=== PATIENT | male | born 1955 | race Caucasian/White ===

== ENCOUNTER 2024-02-02 08:21 | Outpatient (OUT) | payer MEDICARE, SELFPAY ==
--- NOTE | 2024-02-02 08:05 | NM_ITS ---
Patient Name: CAMILA LINDSAY MR#: [id number] : 1955 Exam Date: 02/02/2024 Ordering Doctor: DR Cesar Davis D.O. RADIOLOGY REPORT PROCEDURE: NM ADITYA PERF SPECT REST STR COMPARISON: None. INDICATIONS: ATRIAL FIBRILLATION, HYPERTENSION TECHNIQUE: Exam Description: Stress/Rest two day protocol gated SPECT Rest Imagin.7 mCi Tc-99m Cardiolite IV on 02/02/2024 Stress Imaging 25.7 mCi Tc-99m Cardiolite IV on 02/10/2024 Exercise Protocol: 0.4 mg Lexiscan given IV Heart Rate (bpm): Rest: 90 Max: 123 PMHR: 80 Blood Pressure: Rest: 136/68 Max: 142/76 Symptoms: Rest and peak stress ECG findings were normal and the exercise portion of the study was normal per attending physician Dr. Kvng Davis . For more details please see separate cardiac stress test report. FINDINGS: QUALITY OF STUDY: Good. PERFUSION DEFECT: LOCATION: Basal inferior. Mid-inferior. Apical inferior. [place]. SIZE: SEVERITY: Moderate. TYPE: Persistent. WALL MOTION: Severe hypokinesis: Global LV SIZE: Enlarged; EDV 204 mL. TID / TCD: None; 1.0 LVEF: Abnormal. Calculated EF 39%. SUMMARY: Myocardial perfusion imaging study has ABNORMAL findings. CONCLUSION: 1. No acute or reversible ischemia. 2. Moderate decreased perfusion of the inferior wall and apex during rest and stress imaging. 3. Left ventriculomegaly, 204 mL. 4. Global hypokinesis of left ventricle and low ejection fraction of 39%. Dictated by: Gerald Tabares M.D. on 02/11/2024 at 14:01 Approved by: Gerald Tabares M.D. on 02/11/2024 at 14:12
== END 2024-02-02 08:22 | disposition home or self-care (01) ==
LOC: NM 08:21
PROVIDERS: PCP Internal Medicine; Visit Provider Internal Medicine
DX: R07.9 Chest pain, unspecified (principal); I48.19 Other persistent atrial fibrillation; E11.65 Type 2 diabetes mellitus with hyperglycemia; I10 Essential (primary) hypertension
CPT/HCPCS: 78452; A9500

== ENCOUNTER 2024-02-10 11:39 | Outpatient (OUT) | payer MEDICARE, SELFPAY ==
--- OUTSIDE RECORDS SUMMARY | 2024-02-10 11:57 | XMS_ITS | CCD ---
Author Organization [facility] CliniSywy Care Team Providers Care Relay Adjuster Name Role Phone ELSA, DR QUINTANA Attending Unavailable BALL, DR QUINTANA Primary Care Unavailable ELSA, DR QUINTANA Admitting Unavailable Elsa, Cesar Unavailable Juliette Bautista Unavailable SHAYNA DICKEY Attending Unavailable NOBLE, SHAYNA Vega Referring Unavailable NOBLE, SHAYNA Vgea Admitting Unavailable NOBLE, SHAYNA Vega Attending Unavailable NOBLE, SHAYNA Vega Admitting Unavailable BALL, CESAR Admitting Unavailable BALL, CESAR Attending Unavailable BALL, CESAR Referring Unavailable NOBLE, SHAYNA Vega Attending Unavailable NOBLE, SHAYNA Vega Referring Unavailable NOBLE, SHAYNA Vega Admitting Unavailable NOBLE, SHAYNA Vega Admitting Unavailable NOBLE, SHAYNA Vega Attending Unavailable Que Kaba Attending Unavailable LueAnne-Marie Admitting Unavailable LueAnne-Marie Attending Unavailable LueAnne-Marie MRavinder Referring Unavailable LueAnne-Marie Attending Unavailable HALADAY, MARJORIE Lin Attending Unavailable HALADAY, MARJORIE Lin Admitting Unavailable HALADAY, MARJORIE Lin Attending Unavailable HALADAY, MARJORIE Lin Admitting Unavailable BALL, CESAR Attending Unavailable BALL, CESAR Admitting Unavailable NOBLE, SHAYNA Vega Attending Unavailable BALL, CESAR Attending Unavailable BALL, CESAR Admitting Unavailable DolceJameson Attending Unavailable DolceJameson Admitting Unavailable AnneAnne-Marie Referring Unavailable AnneAnne-Marie Attending Unavailable LueAnne-Marie Admitting Unavailable Ball Cesar REYEZ Primary Care Provider Jameson Grajeda Attending Unavailable Jameson Grajeda Admitting Unavailable POCOS, LEXI Laguna Attending Unavailable POCOS, LEXI Laguna Referring Unavailable POCOS, LEXI Laguna Referring Unavailable POCOS, LEXI Laguna Attending Unavailable POCOS, LEXI Laguna Referring Unavailable POCOS, LEXI Laguna Attending Unavailable POCOS, LEXI Laguna Referring Unavailable ALEJANDRO LUGO Attending Unavailable POCOS, LEXI Laguna Referring Unavailable ALEJANDRO LUGO Attending Unavailable POCYFN, LEXI Laguna Referring Unavailable LUIS FERNANDO BRODERICK Attending Unavailable POCOS, LEXI Laguna Referring Unavailable LUIS FERNANDO BRODERICK Attending Unavailable POCOS, LEXI Laguna Referring Unavailable AMADA RANKIN Attending Unavailable POCOS, LEXI Laguna Referring Unavailable POCOS, LEXI Laguna Attending Unavailable DOLCE, JAMESON Kemp Attending Unavailable DOLCE, JAMESON D Referring Unavailable DOLCE, JAMESON D Attending Unavailable DOLCE, JAMESON D Referring Unavailable DOLCE, JAMESON D Attending Unavailable DOLCE, JAMESON D Attending Unavailable Dolce, Jameson D Attending Unavailable Dolce, Jameson D Admitting Unavailable Dolce, Jameson D Attending Unavailable Dolce, Jameson D Admitting Unavailable Dolce, Jameson D Attending Unavailable Dolce, Jameson D Admitting Unavailable Allergies Allergy Classification Reported Allergen(s) Allergy Type Date of Onset Reaction(s) Facility (20 sources) Substance with sulfonamide structure and antibacterial mechanism of action (substance) Drug allergy 04-29-19 24 Unknown [facility] Healthcare (1 source) patient allergy list reviewed by nurse or physicia Propensity to adverse reactions 09-28-19 18 Comment:Done [facility]ol[employer] Other (6 sources) Sulfonamides (Antibiotic); Translations: [sulfa drugs] Propensity to adverse reactions (disorder) [facility] Repository Medications Current Medications Medication Drug Class(es) Dates Sig (Normalized) Sig (Original) acetaminophen 500 mg oral tablet (20 sources) Start: 04-28-2023 take 500 mg by mouth every six hours Acetaminophen Active 500 MG PO Every 6 hours April 28, 2023 12:00am take 1 tablet by jeffrey th every eight hours as needed for pain acetaminophen (Tylenol 8 Hour) 650 MG ER tablet Take 650 mg by mouth every 8 (eight) hours if needed for mild pain Do not crush, chew, or split. Active acetaminophen 325 mg / HYDROcodone bitartrate 5 mg oral tablet (20 sources) Opioid Agonist Start: 10-19-2023 take 1 tablet by mouth every eight hours Hydrocodone-Acetaminophen Active 1 TAB PO Every 8 hours 9 3 October 19, 2023 HYDROcodone-acet aminophen ([place]) 5-325 MG tablet Active amLODIPine 5 mg oral tablet (20 sources) Dihydropyridine Calcium Channel Chava Start: 06-30-2023 take 1 tablet by mouth once daily Amlodipine Active 0 .ROUTE .COMPLEX June 30, 2023 10:35pm TAKE ONE TABLET BY MOUTH DAILY Start: 07-08-2022 End: 06-30-2023 amLODIPine (Norvasc) 5 MG ta blet 07/08/2022 Active amoxicillin 875 mg / clavulanate 125 mg oral tablet (3 sources) Penicillin-class Antibacterial Start: 11-08-2023 End: 11-18-2023 take 1 tablet by mouth in the morning, then take 1 tablet by mouth after mealtime, then take 1 tablet by mouth twice daily amoxicillin-clavulanate (Augmentin) 875-125 MG tablet Indications: Diabetic Foot Infection Take 1 tablet (875 mg) by mouth in the morning and 1 tablet (875 mg) in the evening. Take after meals. Do all this for 10 days. Take 1 pill p.o. b.I.d. for 10 days. 20 tablet 11/08/2023 11/18/2023 Active atorvastatin 20 mg oral tablet (20 sources) HMG-CoA Reductase Inhibitor Start: 07-08-2022 atorvastatin (Lipitor) 20 MG tablet 07/08/2022 Active clindamycin 300 mg oral capsule (3 sources) Lincosamide Antibacterial Start: 11-22-2023 End: 12-02-2023 take 1 capsule by mouth in the morning, then take 1 capsule by mouth in the evening, then take 1 capsule by mouth at bedtime, then take 1 capsule by mouth three times daily clindamycin (Cleocin) 300 MG capsule Indications: Diabetic Foot Infection Take 1 capsule (300 mg) by mouth in the morning and 1 capsule (300 mg) in the evening and 1 capsule (300 mg) before bedtime. Do all this for 10 days. TAKE 1 PILL P.O. T.I.D. FOR 10 DAYS. 30 capsule 11/22/2023 12/02/2023 Active dextromethorphan hydrobromide 1.5 mg/ml / pyrilamine maleate 1.5 mg/ml oral solution (9 sources) Uncompetitive X-vxtawc-W-asparta te Receptor Antagonist, Sigma-1 Agonist Start: 04-28-2023 take 1 mL by mouth every eight hours Pyrilamine-Dextromethorph an Active 10 ML PO Every 8 hours April 28, 2023 12:00am Start: 01-03-2023 take 10 mL by mouth every eight hours Verbank DM 7.5-7.5 MG/5ML 10 mL Orally every 8 hours for 5 days Dec, Active doxycycline monohydrate 100 mg oral capsule (4 sources) Tetracycline-class Drug Start: 01-25-2024 End: 02-04-2024 doxycycline (Monodox) 100 MG capsule Indications: Abscess , Skin and Soft Tissue Infection Take 1 capsule (100 mg) by mouth in the morning and 1 capsule (100 mg) before bedtime. Do all this for 10 days. Take with at least 8 ounces (large glass) of water, do not lie down for 30 minutes after. 20 capsule 01/25/2024 02/04/2024 Active fluticasone propionate 0.5 mg/ml topical cream (16 sources) Corticosteroid Start: 04-28-2023 Fluticasone Propionate Active 1 APPLIC TOPICAL Twice daily April 28, 2023 12:00am Fluticasone Prop ionate 0.005 % APPLY ONE APPLICATION TWICE A DAY NEEDED for 30 Active hydroxychloroquine sulfate 200 mg oral tablet (20 sources) Antimalarial, Antirheumatic Agent Start: 06-14-2023 take 1 tablet by mouth twice daily at mealtime hydroxychloroquine (Plaquenil) 200 MG tablet TAKE ONE TABLET BY MOUTH TWICE A DAY WITH FOOD -YEARLY EYE EXAM 06/14/2023 Active levothyroxine sodium 0.2 mg oral capsule (20 sources) l-Thyroxine Start: 04-28-2023 take 200 ug by mouth once daily Levothyroxine Active 200 MCG PO Daily April 28, 2023 12:00am Start: 07-08-2022 levothyroxine (Synthroid, Levoxyl) 175 MCG tablet 07/08/2022 Active take 1 tablet by jeffrey th once daily Levothyroxine Sodium 200 MCG TAKE ONE TABLET BY MOUTH ONCE DAILY ON AN EMPTY STOMACH Active take 1 tablet by jeffrey th once daily Levothyroxine Sodium 200 MCG TAKE ONE TABLET BY MOUTH ONCE DAILY ON AN EMPTY STOMACH for 28 Active Levothyroxine So dium Active losartan potassium 50 mg oral tablet (20 sources) Angiotensin 2 Receptor Chava Start: 06-30-2023 take 1 tablet by mouth once daily Losartan Active 0 .ROUTE .COMPLEX June 30, 2023 10:36pm TAKE ONE TABLET BY MOUTH DAILY Start: 07-08-2022 End: 06-30-2023 losartan (Cozaar) 50 MG tabl et 07/08/2022 Active metFORMIN (20 sources) Biguanide Start: 06-30-2023 take 1 tablet by mouth before breakfast Metformin Active 0 .ROUTE .COMPLEX June 30, 2023 10:36pm TAKE ONE TABLET BY MOUTH BEFORE BREAKFAST AND EVENING MEAL Start: 07-08-2022 End: 06-30-2023 metFORMIN (Glucophage) 1000 MG tablet 07/08/2022 Active mupirocin 0.02 mg/mg topical ointment (6 sources) RNA Synthetase Inhibitor Antibacterial Start: 11-08-2023 End: 11-22-2023 mupirocin (Bactroban) 2 % ointment Indications: Wound Infection Apply 1 application topically in the morning and 1 application before bedtime. Do all this for 14 days. 30 g 1 11/08/2023 11/22/2023 Active predniSONE 10 mg oral tablet (20 sources) Start: 10-21-2023 Prednisone Act jcarlos 20 MG PO As Directed October 21, 2023 12:00am 1 tab tid w/ food x 3 days, then bid w/ food x 3 days, then qd w/ food x 3 days Start: 09-15-2023 End: 10-20-2023 predniSONE (Deltasone) 10 MG tablet Indications: Primary osteoarthritis of right knee , Lumbar radiculopathy As directed orally - Take 6 tabs day 1 and 2, 5 tabs day 3 and 4, 4 tabs day 5 and 6, 3 tabs day 7 and 8, 2 tabs day 9 and 10, and 1 tab day 11 and 12. 42 tablet 09/15/2023 10/20/2023 Discontinued Start: 09-06-2023 End: 10-21-2023 take 1 tablet by mouth once daily as needed for pain Prednisone Active 0 .ROUTE .COMPLEX October 21, 2023 7:20am TAKE 1 TABLET BY MOUTH EVERY DAY NEEDED FOR PAIN FOR 30 DAYS Start: 05-11-2023 End: 09-06-2023 take 10 mg by mouth once daily Prednisone Discontinued 10 MG PO Daily May 11, 2023 7:55pm September 06, 2023 7:24am Start: 04-09-2023 End: 05-11-2023 Prednisone Discontinued 10 M G PO Daily April 16, 2023 1:00am May 11, 2023 7:55pm 1 tab tid w/ food x 3 days, then bid w/ food x 3 days, then qd w/ food x 3 days SITagliptin 50 mg oral tablet (20 sources) Dipeptidyl Peptidase 4 Inhibitor Start: 08-13-2022 End: 09-08-2023 take 1 tablet by mouth once daily Januvia 50 MG tablet Take 50 mg by mouth Daily as directed 05/12/2023 Active tamsulosin hydrochloride 0.4 mg oral capsule (20 sources) alpha-Adrenergic Chava Start: 07-08-2022 tamsulosin (Flomax) 0.4 MG 24 hr capsule 07/08/2022 Active traMADol hydrochloride 50 mg oral tablet (8 sources) Opioid Agonist Start: 04-30-2023 Tramadol Activ e 50 MG PO Daily at bedtime April 30, 2023 7:09am p/u 02/26, start 02/27 1RF Start: 04-28-2023 End: 04-30-2023 Tramadol Discontinued 50 MG PO Twice daily April 28, 2023 12:00am April 30, 2023 7:09am p/u 02/26, start 02/27 1RF Start: 02-26-2023 traMADol HCl 5 0 MG 1 tablet as needed Orally twice daily for 30 days p/u 02/26, start 02/27 1RF Feb, Active Start: 01-28-2023 take 1 tablet by [facility] twice daily as needed traMADol HCl 50 MG 1 tablet as needed Orally twice daily for 30 days Jan, Active triamcinolone acetonide 5 mg/ml topical cream (16 sources) Corticosteroid Start: 04-28-2023 Triamcinolone Acetonide Active 1 APPLIC TOPICAL Twice daily April 28, 2023 12:00am Triamcinolone Ac etonide 0.5 % 1 application Externally Twice a day Active Triamcinolone Ac etonide 0.5 % 1 application Externally Twice a day Active Completed/Discontinued Medications Medication Drug Class(es) Dates Sig (Normalized) Sig (Original) azithromycin 250 mg oral tablet (5 sources) Macrolide Antimicrobial Start: 01-04-2023 Azithromycin 250 MG as directed Orally daily for 5 days Dec, Not-Taking/PRN linagliptin 5 mg oral tablet (7 sources) Dipeptidyl Peptidase 4 Inhibitor take 1 tablet by mouth every twenty-four hours Tradjenta 5 MG 1 tablet Orally Once a day Not-Taking meloxicam 15 mg oral tablet (20 sources) Nonsteroidal Anti-inflammatory Drug Start: 09-02-2023 End: 12-01-2023 take 1 tablet by mouth once daily at mealtime meloxicam (Mobic) 15 MG tablet Indications: Primary osteoarthritis of right knee , Lumbar radiculopathy Take 1 tablet (15 mg) by mouth Daily With food. 30 tablet 2 09/15/2023 10/20/2023 Discontinued Start: 04-28-2023 End: 04-30-2023 take 15 mg by mouth once daily Meloxicam Discontinued 15 MG PO Daily April 28, 2023 12:00am April 30, 2023 7:09am take 1 tablet by jeffrey th once daily as needed Meloxicam 15 MG 1 tablet Orally once a day as needed Active Problems Active Problems Problem Classification Problem Date Documented Da te Episodic/Chronic Acquired foot deformities (4 sources) Hammer toe; Translations: [Other hammer toe(s) (acquired), right foot] 11-22-2023 Chronic Allergic reactions (8 sources) Allergic contact dermatitis due to plants, except food; Translations: [Allergic contact dermatitis due to plants, except food] Onset: 09-27-2017 Episodic Chronic ulcer of skin (7 sources) Non-pressure chronic ulcer of other part of right foot with necrosis of muscle; Translations: [Ulcer of other part of foot] 11-22-2023 Chronic Complications of surgical procedures or medical care (9 sources) Postprocedural hypothyroidism; Translations: [Postoperative hypothyroidism] Onset: 10-06-2013 Chronic Diabetes mellitus with complications (20 sources) Hyperglycemia due to type 2 diabetes mellitus; Translations: [Type 2 diabetes mellitus with hyperglycemia] Onset: 10-22-2015 Chronic Disorders of lipid metabolism (20 sources) Mixed hyperlipidemia; Translations: [Mixed hyperlipidemia] Onset: 10-06-2013 Chronic Essential hypertension (20 sources) Hypertensive disorder; Translations: [Essential (primary) hypertension] Onset: 10-06-2013 Chronic Genitourinary symptoms and ill-defined conditions (1 source) Nocturia Episodic Hyperplasia of prostate (20 sources) Nocturia due to benign prostatic hypertrophy; Translations: [Benign prostatic hyperplasia with lower urinary tract symptoms] Onset: 10-22-2015 Chronic Immunizations and screening for infectious disease (4 sources) Vaccination given; Translations: [Encounter for immunization] Episodic Infective arthritis and osteomyelitis (except that caused by tuberculosis or sexually transmitted disease) (4 sources) Acute osteomyelitis of ankle and/or foot; Translations: [Other acute osteomyelitis, left ankle and foot] 11-22-2023 Chronic Mycoses (4 sources) Onychomycosis due to dermatophyte ; Translations: [Tinea unguium] Episodic Osteoarthritis (20 sources) Primary coxarthrosis, bilateral; Translations: [Bilateral primary osteoarthritis of hip] Onset: 07-17-2022 04-27-2023 Chronic Other and unspecified benign neoplasm (4 sources) Benign neoplasm of descending colon; Translations: [Benign neoplasm of descending colon] Episodic Other bone disease and musculoskeletal deformities (5 sources) Exostosis of right foot; Translations: [Other specified disorders of bone, ankle and foot] 12-27-2023 Episodic Other connective tissue disease (2 sources) Pain in right foot; Translations: [Pain in right foot] 11-08-2023 Episodic Other diseases of veins and lymphatics (13 sources) Peripheral venous insufficiency; Translations: [Venous insufficiency (chronic) (peripheral)] 04-28-2023 Episodic Other diseases of veins and lymphatics (1 source) Venous insufficiency (chronic) (peripheral) Episodic Other nervous system disorders (20 sources) Difficulty walking; Translations: [Difficulty in walking, not elsewhere classified] Onset: 07-15-2022 07-15-2022 Chronic Other nervous system disorders (13 sources) Skin sensation disturbance; Translations: [Paresthesia of skin] Episodic Other nervous system disorders (10 sources) Abnormal sensation; Translations: [Other disturbances of skin sensation] Episodic Other nervous system disorders (4 sources) Paresthesia; Translations: [Paresthesia of skin] Episodic Other nutritional; endocrine; and metabolic disorders (14 sources) Body mass index 30+ - obesity; Translations: [Body mass index (BMI) 38.0-38.9, adult] Onset: 06-25-2015 Chronic Other nutritional; endocrine; and metabolic disorders (10 sources) Severe obesity; Translations: [Morbid (severe) obesity due to excess calories] Chronic Other nutritional; endocrine; and metabolic disorders (4 sources) Obese class II; Translations: [Body mass index 37.0-37.9, adult] Onset: 06-25-2015 Chronic Other nutritional; endocrine; and metabolic disorders (6 sources) Obesity; Translations: [Obesity, unspecified] Onset: 10-04-2014 04-29-2023 Chronic Other nutritional; endocrine; and metabolic disorders (1 source) Obesity, unspecified; Translations: [Obesity, unspecified] 10-07-2023 Chronic Other screening for suspected conditions (not mental disorders or infectious disease) (1 source) Encounter for screening for malignant neoplasm of prostate Episodic Other upper respiratory infections (3 sources) Acute pharyngitis, unspecified; Translations: [Acute upper respiratory infection, unspecified] Episodic Rheumatoid arthritis and related disease (20 sources) Inflammatory polyarthropathy; Translations: [Inflammatory polyarthropathy] Chronic Skin and subcutaneous tissue infections (10 sources) Cellulitis of toe of right foot; Translations: [Cellulitis of right toe] 01-25-2024 Episodic Spondylosis; intervertebral disc disorders; other back problems (20 sources) Lumbar spondylosis; Translations: [Spondylosis without myelopathy or radiculopathy, lumbar region] Chronic Spondylosis; intervertebral disc disorders; other back problems (2 sources) Low back pain; Translations: [Low back pain radiating to right lower extremity] 10-07-2023 Episodic Thyroid disorders (20 sources) 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; Translations: [Other specified hypothyroidism] Chronic Urinary tract infections (17 sources) Dysuria-frequency syndrome; Translations: [Urethral syndrome, unspecified] Episodic Past or Other Problems Problem Classification Problem Date Documented Da te Episodic/Chronic E Codes: Adverse effects of medical drugs (4 sources) Adverse effect of unspecified drugs, medicaments and biological substances, sequela; Translations: [Adverse effect of unspecified drugs, medicaments and biological substances, sequela] Onset: 06-25-2015 Episodic Nonspecific chest pain (4 sources) Chest pain; Translations: [Other chest pain] Onset: 06-25-2015 Episodic Other connective tissue disease (1 source) Myalgia/myositis - multiple; Translations: [Unspecified myalgia and myositis] Onset: 06-25-2015 Episodic Other connective tissue disease (3 sources) Muscle pain; Translations: [Unspecified myalgia and myositis] Onset: 06-25-2015 Episodic Other connective tissue disease (3 sources) Iliotibial band friction syndrome of right knee; Translations: [Iliotibial band syndrome, right leg] 10-06-2023 Episodic Other non-traumatic joint disorders (20 sources) Hip pain; Translations: [Pain in right hip] Onset: 07-15-2022 07-15-2022 Episodic Residual codes; unclassified (4 sources) Family history of diabetes mellitus; Translations: [Family history of diabetes mellitus] Onset: 10-06-2013 Episodic Results Test Name Value Interpretation Reference Range Facility [facility] C WOUNDon 01-28-2024 [facility] WOUND CULTURE Microbiology PROCEDURE: Wound Culture [R1] SOURCE: Abscess BODY SITE: Toe COLLECTED DATE/TIME: 01/25/2024 08:30 EST RECEIVED DATE/TIME: 01/25/2024 20:38 EST START DATE/TIME: 01/25/2024 20:38 EST FREE TEXT SOURCE: Right toe Jameson Grajeda DPM, DPM, Jameson Kemp FINAL REPORTS Final Report [] Verified Date/Time: 01/28/2024 13:13 EST 2+ Gram Positive Rods resembling diphtheroids STAINS Gram Stain Report [] Verified Date/Time: 01/26/2024 12:46 EST Occasional White Blood Cells Occasional Gram Positive Rods Performing Locations R1: This test was performed at: [facility], [address] [place] [address], [id number] [place], [facility] Original Ordering Provider: RAFITA Grajeda [facility] e BMPon 01-26-2024 Anion gap [Moles/Vol] 14 mmol/L Normal 6-16 [facility] Comment on above: Performed By: #### 2 [id number] #### [facility] [address] [place] [address] Calcium [Mass/Vol] 9.4 mg/dL Normal 8.9-11.1 [facility] Comment on above: Performed By: #### 2 [id number] #### [facility] [address] [place] [address]677 Chloride [Moles/Vol] 102 mmol/L Normal 101-111 [facility] Comment on above: Performed By: #### 2 [id number] #### [facility] [address] [place] [address] CO2 [Moles/Vol] 25 mmol/L Normal 21-31 [facility] Comment on above: Performed By: #### 2 [id number] #### [facility] [address] [place] [address] Creatinine [Mass/Vol] 0.9 mg/dL Normal 0.5-1.3 [facility] Comment on above: Performed By: #### 2 [id number] #### [facility] [address] [place] [address] Glucose [Mass/Vol] 221 mg/dL High 55-199 [facility] Comment on above: Performed By: #### 2 [id number] #### [facility] [address] [place] [address] Potassium [Moles/Vol] 4.1 mmol/L Normal 3.5-5.3 [facility] Comment on above: Performed By: #### 2 [id number] #### [facility] [address] [place] [address] Sodium [Moles/Vol] 137 mmol/L Normal 135-145 [facility] Comment on above: Performed By: #### 2 [id number] #### [facility] [address] [place] [address] Urea nitrogen [Mass/Vol] 13 mg/dL Normal 5-21 [facility] Comment on above: Performed By: #### 2 [id number] #### [facility] [address] [place] [address] Urea nitrogen/Creatinin e [Mass ratio] 14 No Units Normal 10-20 [facility] Comment on above: Performed By: #### 2 [id number] #### [facility] [address] [place] [address] CBC w/ Auto Diffon 4 Basophils/100 WBC (Bld) 0.5 % Normal 0.0-2.0 [facility] Comment on above: Performed By: #### 2 [id number] #### [facility] [address] [place] [address] Erythrocyte distribution width (RBC) [Ratio] 12.7 % Normal 10.9-14.2 [facility] Comment on above: Performed By: #### 2 [id number] #### [facility] [address] [place] [address] Hematocrit (Bld) [Volume fraction] 39.3 % Normal 37.7-49.0 [facility] Comment on above: Performed By: #### 2 [id number] #### [facility] [address] [place] [address] Lymphocytes/100 WBC (Bld) 8.9 % Low 14.0-50.0 [facility] Comment on above: Performed By: #### 2 [id number] #### [facility] [address] [place] [address] 24000 Neutrophils/100 WBC (Bld) 86.7 % High 36.0-75.0 [facility] Comment on above: Performed By: #### 2 [id number] #### [facility] [address] [place] [address] 85078 Platelet mean volume (Bld) [Entitic vol] 9.5 fL Normal 6.4-10.8 [facility] Comment on above: Performed By: #### 2 [id number] #### [facility] [address] [place] [address] Basophils/Leukocyt es Auto (Bld) [Pure # fraction] 0.0 E9/L Normal 0.0-0.2 [facility] Comment on above: Performed By: #### 2 [id number] #### [facility] [address] [place] [address] 13635 Eosinophils (Bld) [#/Vol] 0.0 E9/L Normal 0.0-0.5 [facility] Comment on above: Performed By: #### 2 [id number] #### [facility] [address] [place] [address] 30106 Eosinophils/100 WBC (Bld) 0.3 % Normal 0.0-8.0 [facility] Comment on above: Performed By: #### 2 [id number] #### [facility] [address] [place] [address]116 Hemoglobin (Bld) [Mass/Vol] 13.3 g/dL Low 13.5-17.5 [facility] Comment on above: Performed By: #### 2 [id number] #### [facility] [address] [place] [address] 37949 Lymphocytes (Bld) [#/Vol] 0.8 E9/L Low 1.0-4.0 [facility] Comment on above: Performed By: #### 2 [id number] #### [facility] [address] [place] [address] 14339 MCH (RBC) [Entitic mass] 30.6 pg Normal 27.0-34.0 [facility] Comment on above: Performed By: #### 2 [id number] #### [facility] [address] [place] [address] 11969 MCHC (RBC) [Mass/Vol] 33.7 g/dL Normal 31.4-36.0 [facility] Comment on above: Performed By: #### 2 [id number] #### [facility] [address] [place] [address] 99555 MCV (RBC) [Entitic vol] 90.5 fL Normal 80.0-100.0 [facility] Comment on above: Performed By: #### 2 [id number] #### [facility] [address] [place] [address] 27955 Monocytes (Bld) [#/Vol] 0.3 E9/L Normal 0.2-1.0 [facility] Comment on above: Performed By: #### 2 [id number] #### [facility] [address] [place] [address] 39231 Neutrophils (Bld) [#/Vol] 8.1 E9/L High 2.0-7.5 [facility] Comment on above: Performed By: #### 2 [id number] #### [facility] [address] [place] [address] Platelets (Bld) [#/Vol] 222.0 E9/L Normal 150.0-500.0 [facility] Comment on above: Performed By: #### 2 [id number] #### [facility] [address] [place] [address] RBC (Bld) [#/Vol] 4.3 E12/L Normal 4.3-5.9 [facility] Comment on above: Performed By: #### 2 [id number] #### [facility] [address] [place] [address] WBC corrected for nucl RBC Auto (Bld) [#/Vol] 9.3 E9/L Normal 4.0-11.0 [facility] Comment on above: Performed By: #### 2 [id number] #### [facility] [address] [place] [address] [facility] CBC W/ AUTO DIFFon 01-15 EOSINOPHILS/100 LEUKOCYTES:NFR:PT: BLD:QN:AUTOMATED COUNT 0.3 % 0.0 - 8.0 % [facility] EOSINOPHILS:NCNC:P T:BLD:QN: 0 [facility] BASOPHILS/LEUKOCYT ES:NFR.DF:PT:BLD:Q N:AUTOMATED COUNT 0 [facility] ERYTHROCYTE MEAN CORPUSCULAR HEMOGLOBIN CONCENTRATION:MCNC :PT:RBC:QN 33.7 [facility] ERYTHROCYTE MEAN CORPUSCULAR HEMOGLOBIN:ENTMASS :PT:RBC:QN 30.6 pg 27.0 - 34.[address] [facility] ERYTHROCYTE MEAN CORPUSCULAR VOLUME:ENTVOL:PT:R BC:QN:AUTOMATED COUNT 90.5 fL 80.0 - 100.[address] [facility] ERYTHROCYTES:NCNC: PT:BLD:QN:AUTOMATE D COUNT 4.3 [facility] HEMOGLOBIN:MCNC:PT :BLD:QN: 13.[address] [facility] LEUKOCYTES 9.3 [facility] MONOCYTES:NCNC:PT: BLD:QN:AUTOMATED COUNT 0.3 [facility] NEUTROPHILS:NCNC:P T:BLD:QN:AUTOMATED COUNT 8.[address] [facility] PLATELETS:NCNC:PT: BLD:QN:AUTOMATED COUNT 222 [facility] Interpretation and review of laboratory results Abnormal [facility] re LYMPHOCYTES:NCNC:P T:BLD:QN: 0.8 Low [facility] Original Ordering Provider: RAF[facility]IO [facility]-26-2024 eGFR 93 mL/min/1.73 m2 Normal >=59 [facility] Comment on above: Performed By: #### 1 [id number] #### [facility] [address] [place] [address] MR FOOT RIGHT WO IV CONTRAST on 12-10-2023 MR FOOT RIGHT WO IV CONTRAST EXAM: MR FOOT RIGHT WO IV CONTRAST HISTORY: Osteomyelitis of the great toe. First toe ulcer. COMPARISON : Foot radiograph November 08, 2023 TECHNIQUE: Multiplanar multisequence MRI of the foot was performed without contrast. FINDINGS: The examination is degraded by motion artifact. No definitive signal abnormality to suggest osteomyelitis. Degenerative changes are identified at the first metatarsophalangeal joint and interphalangeal joint of the great toe. Mild subcutaneous soft tissue edema of the great toe without loculated fluid collection to suggest abscess. Flexion extensor tendons appear intact. No soft tissue mass. IMPRESSION: No definitive findings of osteomyelitis. Degenerative changes of the first metatarsophalangeal joint and first interphalangeal joint. ELECTRONICALLY SIGNED BY: Marjorie Kemp, DO Normal Not Available [facility] C WOUNDon 11-24-2023 [facility] WOUND CULTURE Microbiology PROCEDURE: Wound Culture [R1] SOURCE: Abscess BODY SITE: Toe COLLECTED DATE/TIME: 11/22/2023 09:15 EDT RECEIVED DATE/TIME: 11/22/2023 13:08 EDT START DATE/TIME: 11/22/2023 13:08 EDT FREE TEXT SOURCE: Right great toe Jameson Grajeda DPM, DPM, Marc D FINAL REPORTS Final Report [] Verified Date/Time: 11/24/2023 13:33 EDT 1+ Pseudomonas aeruginosa Scant growth of Staphylococcus species coagulase negative STAINS Gram Stain Report [] Verified Date/Time: 11/23/2023 12:10 EDT Occasional White Blood Cells Occasional Gram Negative Rods SUSCEPTIBILITY RESULTS ____ LEGEND: S=Susceptible, N/R=Not Reported, Blank=Data not available, or drug not advisable or tested, I=Intermediate, ESBL=Extended spectrum beta-lactamase, R=Resistant, TFG=Thymidine-dependent strain, YESSENIA=Beta-lactamase positive, DAVE=mcg/m;(mg/L), S*=Predicted susceptible interp, R*=Predicted resistant interp ___ PA Antibiotic DAVE Dilutn DAVE Interp Aztreonam <=4 S Cefepime <=2 S Ceftazidime <=1 S Ceftazidime/ <=8 S Avibactam Ciprofloxacin <=0.25 S Gentamicin 4 S Levofloxacin <=0.5 S Meropenem <=1 S Piperacillin/ <=8 S Tazobactam Tobramycin <=2 S Performing Locations R1: This test was performed at: [facility] [facility], [address] [place] [address], [phone] , , [facility] Original Ordering Provider: RAFITA GREGORIO [facility] C WOUNDon 11-10-2023 [facility] WOUND CULTURE Microbiology PROCEDURE: Wound Culture [R1] SOURCE: Abscess BODY SITE: Toe COLLECTED DATE/TIME: 11/08/2023 09:00 EDT RECEIVED DATE/TIME: 11/08/2023 14:35 EDT START DATE/TIME: 11/08/2023 14:35 EDT FREE TEXT SOURCE: Right toe Dolce DPM, Jameson D Dolce DPM, Jameson D FINAL REPORTS Final Report [] Verified Date/Time: 11/10/2023 11:21 EDT 2+ Streptococcus agalactiae (Group B) Presumptive isolated. Scant growth of Normal skin raisa isolated STAINS Gram Stain Report [] Verified Date/Time: 11/09/2023 11:15 EDT Occasional White Blood Cells Occasional Gram Positive Cocci SUSCEPTIBILITY RESULTS ____ LEGEND: S=Susceptible, N/R=Not Reported, Blank=Data not available, or drug not advisable or tested, I=Intermediate, ESBL=Extended spectrum beta-lactamase, R=Resistant, TFG=Thymidine-dependent strain, YESSENIA=Beta-lactamase positive, DAVE=mcg/m;(mg/L), S*=Predicted susceptible interp, R*=Predicted resistant interp ___ Strep B Antibiotic DAVE Dilutn DAVE Interp Ampicillin 0.12 S Azithromycin <=0.25 S Cefepime <=0.25 S Ceftriaxone <=0.25 S Clindamycin <=0.06 S Erythromycin <=0.06 S Levofloxacin 0.5 S Penicillin 0.06 S Tetracycline >4 R Vancomycin 0.5 S Performing Locations R1: This test was performed at: [facility], [address] [place] [address], [phone] , [place], [facility] Original Ordering Provider: RAFITA GREGORIO [employer] [facility] Foot - right 3 [facility] Result: Three views were taken today AP/MO/LAT foot: No fractures or dislocations seen no gas noted in the soft tissue no signs of osteomyelitis. Yurpy e Radiology Study observation (narrative) [employer] Reminderson 10-28-2023 Reminders Reminders From: Snow Castro To: EU - Administrative; Sent: 08/26/2023 10:26:49 EDT Show up: 10/27/2023 10:26:00 EDT Subject: 2-3 mo f/u Due Date/Time: 11/26/2023 10:26:00 EDT Reminder/Recall patient seen on 08/26/2023 by alfred in [place]. patient needs a 2-3 mo f/u. appointment due by 11/26/2023 PATIENT IS HAVING SURGERY ON Nov TO HAVE LEFT SIDE KIDNEY STONE REMOVED WITH DR GREG Longoria [facility] BMPon 10-26-2023 Anion gap [Moles/Vol] 12 mmol/L Normal 6-16 [facility] Comment on above: Performed By: #### 2 [id number] #### [facility] [address] [place] [address] 29498 Calcium [Mass/Vol] 8.7 mg/dL Low 8.9-11.1 [facility] Comment on above: Performed By: #### 2 [id number] #### [facility] [address] [place] [address] 22968 Chloride [Moles/Vol] 101 mmol/L Normal 101-111 [facility] Comment on above: Performed By: #### 2 [id number] #### [facility] [address] [place] [address] 08385 CO2 [Moles/Vol] 27 mmol/L Normal 21-31 [facility] Comment on above: Performed By: #### 2 [id number] #### [facility] [address] [place] [address] Creatinine [Mass/Vol] 0.8 mg/dL Normal 0.5-1.3 [facility] Comment on above: Performed By: #### 2 [id number] #### [facility] [address] [place] [address] Glucose [Mass/Vol] 231 mg/dL High 55-199 [facility] Comment on above: Performed By: #### 2 [id number] #### [facility] [address] [place] [address] Potassium [Moles/Vol] 3.9 mmol/L Normal 3.5-5.3 [facility] Comment on above: Performed By: #### 2 [id number] #### [facility] [address] [place] [address] Sodium [Moles/Vol] 136 mmol/L Normal 135-145 [facility] Comment on above: Performed By: #### 2 [id number] #### [facility] [address] [place] [address] Urea nitrogen [Mass/Vol] 17 mg/dL Normal 5-21 [facility] Comment on above: Performed By: #### 2 [id number] #### [facility] [address] [place] [address] Urea nitrogen/Creatinin e [Mass ratio] 21 No Units High 10-20 [facility] Comment on above: Performed By: #### 2 [id number] #### [facility] [address] [place] [address] CBC w/ Auto Diffon 4 Basophils/100 WBC (Bld) 0.1 % Normal 0.0-2.0 [facility] Comment on above: Performed By: #### 2 [id number] #### [facility] [address] [place] [address] Basophils/Leukocyt es Auto (Bld) [Pure # fraction] 0.0 E9/L Normal 0.0-0.2 [facility] Comment on above: Performed By: #### 2 [id number] #### [facility] [address] [place] [address] 33491 Eosinophils (Bld) [#/Vol] 0.0 E9/L Normal 0.0-0.5 [facility] Comment on above: Performed By: #### 2 [id number] #### [facility] [address] [place] [address] 26281 Eosinophils/100 WBC (Bld) 0.1 % Normal 0.0-8.0 [facility] Comment on above: Performed By: #### 2 [id number] #### [facility] [address] [place] [address] 64127 Erythrocyte distribution width (RBC) [Ratio] 14.2 % Normal 10.9-14.2 [facility] Comment on above: Performed By: #### 2 [id number] #### [facility] [address] [place] [address] 83067 Hematocrit (Bld) [Volume fraction] 39.5 % Normal 37.7-49.0 [facility] Comment on above: Performed By: #### 2 [id number] #### [facility] [address] [place] [address] 46697 Hemoglobin (Bld) [Mass/Vol] 13.7 g/dL Normal 13.5-17.5 [facility] Comment on above: Performed By: #### 2 [id number] #### [facility] [address] [place] [address] Lymphocytes (Bld) [#/Vol] 1.3 E9/L Normal 1.0-4.0 [facility] Comment on above: Performed By: #### 2 [id number] #### [facility] [address] [place] [address] Lymphocytes/100 WBC (Bld) 17.1 % Normal 14.0-50.0 [facility] Comment on above: Performed By: #### 2 [id number] #### [facility] [address] [place] [address] MCH (RBC) [Entitic mass] 30.7 pg Normal 27.0-34.0 [facility] Comment on above: Performed By: #### 2 [id number] #### [facility] [address] [place] [address] MCHC (RBC) [Mass/Vol] 34.6 g/dL Normal 31.4-36.0 [facility] Comment on above: Performed By: #### 2 [id number] #### [facility] [address] [place] [address] MCV (RBC) [Entitic vol] 88.8 fL Normal 80.0-100.0 [facility] Comment on above: Performed By: #### 2 [id number] #### [facility] [address] [place] [address] Monocytes (Bld) [#/Vol] 0.6 E9/L Normal 0.2-1.0 [facility] Comment on above: Performed By: #### 2 [id number] #### [facility] [address] [place] [address] Neutrophils (Bld) [#/Vol] 5.7 E9/L Normal 2.0-7.5 [facility] Comment on above: Performed By: #### 2 [id number] #### [facility] [address] [place] [address] Neutrophils/100 WBC (Bld) 74.5 % Normal 36.0-75.0 [facility] Comment on above: Performed By: #### 2 [id number] #### [facility] [address] [place] [address] Platelet mean volume (Bld) [Entitic vol] 8.3 fL Normal 6.4-10.8 [facility] Comment on above: Performed By: #### 2 [id number] #### [facility] [address] [place] [address] Platelets (Bld) [#/Vol] 209.0 E9/L Normal 150.0-500.0 [facility] Comment on above: Performed By: #### 2 [id number] #### [facility] [address] [place] [address] RBC (Bld) [#/Vol] 4.5 E12/L Normal 4.3-5.9 [facility] Comment on above: Performed By: #### 2 [id number] #### [facility] [address] [place] [address] WBC corrected for nucl RBC Auto (Bld) [#/Vol] 7.7 E9/L Normal 4.0-11.0 [facility] Comment on above: Result Comment: Nena pheral smear review performed. Performed By: #### 2 [id number] #### [facility] [address] [place] [address] PT & PTTon 10-26-2023 aPTT Coag (PPP) [Time] 24.8 second(s) Low 25.1-36.5 [facility] Comment on above: Result Comment: Para meter 15 days - 4 weeks 1 - 5 months 6 - 11 months 1 - 5 years 6 - 10 years 11 - 17 years PTT Mean: 35.4 (27.6-45.6) Mean: 33.5 (24.8-40.7) Mean: 32.4 (25.1-40.7) Mean: 31.6 (24.0-39.2) Mean: 31.6 (26.9-38.7) Mean: 31.0 (24.6-38.4) Pediatric Reference ranges were obtained from a study by Benedicto Tavares et al. prepared from 1437 samples obtained at 7 different centers using the same coagulation reagent and instrumentation as [facility]. Currently there are no coagulation studies available worldwide for children to 14 days, and no normal ranges. Heparin therapeutic range (represented by Anti-Factor Xa activity of 0.2 - 0.4 U/mL) corresponds to PTT of 56.6 - 109.0 sec. Performed By: #### 1 [id number] #### [facility] [address] [place] [address] INR Coag (PPP) [Relative time] 1.14 {INR} Invalid Interpretation Code [facility] Comment on above: Result Comment: INR results are specifically intended to assess patients stabilized on long-term Anticoagulation therapy suggested INR?s ?Less Intensive Anticoagulation? 2.0 ? 3.0 Conventional Range 3.0 ? 4.5 Performed By: #### 1 [id number] #### [facility] [address] [place] [address] PT Coag (PPP) [Time] 12.8 second(s) High 9.4-12.5 [facility] Comment on above: Result Comment: 15 d ays - 4 weeks 1 - 5 months 6 -11 months 1- 5 years 6-10 years 11 -17 years Mean: 11.2 (9.5-12.6) Mean: 11.0 (9.7-12.8) Mean: 11.0 (9.8-13.0) Mean: 11.3 (9.9-13.4) Mean: 11.7 (10.0-14.6) Mean: 11.8 (10.0 - 14.1) Pediatric Reference ranges were obtained from a study by Benedicto Tavares et al. prepared from 1437 samples obtained at 7 different centers using the same coagulation reagent and instrumentation as [facility]. Currently there are no coagulation studies available worldwide for children to 14 days, and no normal ranges. Performed By: #### 1 [id number] #### [facility] [address] [place] [address] UA with Cult Rflxon 10-26-19 24 Bilirubin Ql (U) Negative Normal Negative [facility] [place] [facility] Comment on above: Performed By: #### 4 [id number] #### [facility] [address] [place] [address] Clarity (U) Clear Normal Clear [facility] Comment on above: Performed By: #### 4 [id number] #### [facility] [address] [place] [address] Color (U) Yellow Normal Yellow [facility] Comment on above: Result Comment: Micr oscopic readings are only performed on those samples that meet specific criteria set forth by [facility]. Performed By: #### 4 [id number] #### [facility] [address] [place] [address] Glucose Ql (U) 2+ mg/dL Abnormal Negative [facility] Comment on above: Performed By: #### 4 [id number] #### [facility] [address] [place] [address] Hemoglobin Auto test strip (U) [Mass/Vol] Negative Normal Negative [facility] Comment on above: Performed By: #### 4 [id number] #### [facility] [address] [place] [address] Ketones Auto test strip Ql (U) Negative Normal Negative [facility] Comment on above: Performed By: #### 4 [id number] #### [facility] [address] [place] [address] Leukocyte esterase Auto test strip Ql (U) Negative Normal Negative [facility] Comment on above: Performed By: #### 4 [id number] #### [facility] [address] [place] [address] Nitrite Auto test strip Ql (U) Negative Normal Negative [facility] Comment on above: Performed By: #### 4 [id number] #### [facility] [address] [place] [address] pH (U) 7.0 [pH] Invalid Interpretation Code 5.0-9.0 [facility] Comment on above: Performed By: #### 4 [id number] #### [facility] [address] [place] [address] Protein Ql (U) Negative Normal Negative [facility] Comment on above: Performed By: #### 4 [id number] #### [facility] [address] [place] [address] Specific gravity (U) [Rel density] 1.008 Invalid Interpretation Code 1.005-1.030 [facility] Comment on above: Performed By: #### 4 [id number] #### [facility] [address] [place] [address] Urobilinogen (U) [Mass/Vol] Negative Normal Negative [facility] Comment on above: Performed By: #### 4 [id number] #### [facility] [address] [place] [address] Type of Urine collection method Clean Catch Normal [facility] Comment on above: Performed By: #### 4 [id number] #### [facility] [address] [place] [address] XR Chest 2 Viewson XR Chest 2 Views Exam Date/Time: 10/26/2023 09:47 EDT Reason for Exam: P.A.T. Report IMPRESSION: NO EVIDENCE OF ACTIVE CHEST DISEASE. CLINICAL HISTORY: P.A.T.. COMPARISON: 11/01/2018. COMMENT: The heart is within normal limits in size. The mediastinum is unremarkable. The lungs appear clear. No infiltration nor pleural effusion is evident. No significant change is noted when compared to the prior exam. Ordering Provider: Gary Pleitez FINAL REPORT Dictated: 10/26/2023 11:21 am Nikolas Nelson M.D. Signed (Electronic Signature): 10/26/2023 11:21 am Signed by: Nikolas Nelson M.D. Transcribed by: PARK Technologist: TRISTIAN Technical Comments Radiation Dose: Ka,r in mGy = na DAP = na Normal [facility] eGFRon 10-26-2023 eGFR 96 mL/min/1.73 m2 Normal >=59 [facility] Comment on above: Order Comment: Order added by Discern Expert. Performed By: #### 1 [id number] #### [facility] [address] [place] [address] MRI Spine Lumbar w/o Contras ton 10-21-2023 MRI Spine Lumbar w/o Contrast Exam Date/Time: 10/19/2023 07:37 EDT Reason for Exam: [id number] Report IMPRESSION: DEGENERATIVE CHANGES OF LUMBAR SPINE DETAILED. EXAM: MRI of the lumbar spine without contrast History: Low back pain with radiculopathy Technique: Multiplanar multisequence MRI of the lumbar spine was obtained without intravenous contrast. Comparison: Lumbar spine radiographs 09/13/2023 Findings: The conus medullaris ends normally. Mild dextrocurvature. The vertebral body heights are well maintained. There is no aggressive bone marrow signal abnormality. Disc desiccation and mild intervertebral disc height loss at L1-L2 through L4-L5. Intervertebral disc height of L5 is maintained. T12-L1: Small disc bulge. No neuroforaminal or spinal canal stenosis. L1-L2: Small disc bulge with tiny central annular fissure. Mild facet arthropathy. Mild bilateral neuroforaminal stenosis. No spinal canal stenosis. L2-L3: Moderate disc bulge with superimposed right central disc extrusion measuring approximately 8 mm in AP dimension by 10 mm in transverse dimension coursing inferiorly along the inferior aspect of L3 for length of approximately 19 mm. Mild facet arthropathy. Ligamentum flavum thickening. Severe spinal canal stenosis. Moderate bilateral neuroforaminal stenosis. L3-L4: Moderate disc bulge. Moderate facet arthropathy. Ligamentum flavum thickening. Severe spinal canal stenosis. Moderate bilateral neuroforaminal stenosis. L4-L5: Small disc bulge. Mild facet arthropathy. Ligamentum flavum thickening. Moderate spinal canal stenosis. Moderate right neuroforaminal stenosis. L5-S1: Posterior disc bulge. Mild facet arthropathy. No neuroforaminal or spinal canal stenosis. Visualized paravertebral soft tissues appear within normal limits as visualized. Round hyperintense T2 structure of the inferior pole left kidney measuring approximately 3 cm is most likely a cyst. Report Ordering Provider: CESAR DAVIS FINAL REPORT Dictated: 10/21/2023 12:45 pm Marjorie Kemp DO Signed (Electronic Signature): 10/21/2023 12:45 pm Signed by: Marjorie Kemp DO Transcribed by: PARK Technologist: LIOR Technical Comments None Normal [facility] Ambulatory Visit Summaryon 0 09-16-2023 Ambulatory Visit Summary Ambulatory Visit Summary NIKOLAS CALVO Sommer :1955 Visit Date:09/16/2023 Ambulatory Visit Instructions Your Diagnosis Kidney stone BPH with urinary obstruction Prostate cancer screening Your Care Team Attending Physician - Anne-Marie Garza MD Primary Care Physician - CESAR DAVIS DO This Is Your Medications List amlodipine atorvastatin (atorvastatin 20 mg Tab) levothyroxine (Synthroid) losartan (losartan 50 mg Tab) meloxicam (meloxicam 15 mg Tab) metformin sitagliptin (Januvia 50 mg Tab) tamsulosin (Flomax 0.4 mg Cap) Procedures Performed Colonoscopy (09/11/2022), ORIF - Open reduction of fracture of ankle with internal fixation (03/14/2019), Cystoscopic removal of ureteric stent (11/10/2018), Cystoscopic laser lithotripsy of ureteric calculus (11/02/2018), Colonoscopy (12/24/2017), Colonoscopy (10/14/2011), Bilateral vasectomy (02/15/1987), Thyroidectomy. Discharge Vitals Heart Rate (Peripheral) 69 Respiratory Rate 19 Blood Pressure 152/87 Height 188 cm Height 74 in Weight 125 kg Weight 275 lb BMI 35.37 What to do next You Need to Schedule the Following Appointments Follow Up with Greg REYEZ, JACQUELINE Anne, URO When: Comments: sched laser litho Where: Medications What How Much When Instructions Unchanged amlodipine 5 Milligram By Mouth Every day Unchanged atorvastatin (atorvastatin 20 mg Tab) 1 Tablets By Mouth At bedtime Unchanged levothyroxine (Synthroid) 175 Microgram By Mouth Every day Unchanged losartan (losartan 50 mg Tab) 1 Tablets By Mouth Every day Unchanged meloxicam (meloxicam 15 mg Tab) 1 Tablets By Mouth Every day Unchanged metformin 1,000 Milligram By Mouth 2 times a day Unchanged sitagliptin (Januvia 50 mg Tab) 1 Tablets By Mouth Every day Unchanged tamsulosin (Flomax 0.4 mg Cap) 1 Capsules By Mouth Every day Allergies No Known Allergies Problems Ongoing - Any problem that you are currently receiving treatment for. 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 Please share your experience with us by completing your survey. We appreciate your feedback and thank you for choosing us for your care. Education Materials Lithotripsy, Care After This sheet gives you information about how to care for yourself after your procedure. Your health care provider may also give you more specific instructions. If you have problems or questions, contact your health care provider. What can I expect after the procedure? After the procedure, it is common to have: ? Some blood in your urine. This should only last for a few days. ? Soreness in your back, sides, or upper abdomen for a few days. ? Blotches or bruises on the area where the shock wave entered the skin. ? Pain, discomfort, or nausea when pieces (fragments) of the kidney stone move through the tube that carries urine from the kidney to the bladder (ureter). Stone fragments may pass soon after the procedure, but they may continue to pass for up to 4?8 weeks. ? If you have severe pain or nausea, contact your health care provider. This may be caused by a large stone that was not broken up, and this may mean that you need more treatment. ? Some pain or discomfort during urination. ? Some pain or discomfort in the lower abdomen or (in men) at the base of the penis. Follow these instructions at home: Medicines ? Take eydh-awt-ehzyghn and prescription medicines only as told by your health care provider. ? If you were prescribed an antibiotic medicine, take it as told by your health care provider. Do not stop taking the antibiotic even if you start to feel better. ? Ask your health care provider if the medicine prescribed to you requires you to avoid driving or using machinery. Eating and drinking ? Drink enough fluid to keep your urine pale yellow. This helps any remaining pieces of the stone to pass. It can also help prevent new stones from forming. ? Eat plenty of fresh fruits and vegetables. ? Follow instructions from your health care provider about eating or drinking restrictions. You may be instructed to: ? Reduce how much salt (sodium) you eat or drink. Check ingredients and nutrition facts on packaged foods and beverages to see how much sodium they contain. ? Reduce how much meat you eat. ? Eat the recommended amount of calcium for your age and gender. Ask your health care provider how much calcium you should have. General instructions ? Get plenty of rest. ? Return (more content not included)... Normal [facility] Urology Office/Clinic Noteon 09-16-2023 Urology Office/Clinic Note Urology Office/Clinic Note Chief Complaint Discuss treatment HPI Staff 67 year old male here to discuss kidney stone treatment. Previous DX: BPH w/LUTS, kidney stone and prostate cancer screening. CT done 09/06/23 Dysuria: no Incomplete bladder emptying: no Hematuria: no Frequency: 2-3 hours Urgency: occasionally Nocturia: 2-3x's Stream: good stream Post void dripping: no Wearing pads/ Depends: no Urge incontinence: no Stress incontinence: no Incontinence without Sensory Awareness: no Abdominal pain: no Flank pain: no History of Present Illness Tests reviewed: reviewed UA, CT scan I have reviewed the previous health record information and history for this patient from [facility]. I have reviewed and verified the staff HPI to be accurate for this encounter. Review of Systems PHQ Score Initial Depression Screen Score: 0 SCORE ROS - Provider Constitutional: denies weight loss, denies hot flashes. Eyes: denies eye problems. Gastrointestinal: denies nausea, denies vomiting. Cardiovascular: denies chest pain or angina. Integumentary: no dryness Musculoskeletal: denies musculoskeletal symptoms. ENMT: denies otolaryngeal symptoms. Respiratory: no shortness of breath. Heme/Lymph: denies easy bleeding tendency, denies easy bruising tendency. Psychiatric: no confusion, no anxiety. Genitourinary: See HPI. Physical Exam Vitals & Measurements HR: 69(Peripheral) RR: 19 BP: 152/87 HT: 74 in HT: 188 cm WT: 125 kg WT: 275 lb BMI: 35.37 General Appearance: alert, no distress, well nourished, well developed male. Assessment/Plan Pt is accompanied by his today. GENIA 24. 1. Kidney stone (N20.0: Calculus of kidney) hx lithotripsy for large obstructing ureteral stone previously KUB 08/11/23 shows L renal stones, sizes not provided ADELAIDE same day suggests 9mm L renal stone CT AP wo con 09/06/23 - 1.4cm stone within inferior pole of left kidney (personal review, filling lower pole infundibulum not discrete round stone) Discussed the CT results with pt and his . Discussed the size and location of stone in regards to treatment options. Discussed management options including observation vs intervention including extracorporeal shockwave lithotripsy vs ureteroscopy with laser lithotripsy/stone basket extraction possible stent vs PCNL. Risks/benefits of each were discussed including but not limited to: growth, renal damage, pain or infection; ESWL- bleeding, hematoma, pain, infection, inability to break up the stone, ureteral obstruction, cardiac arrhythmias, damage to surrounding structures and need for additional procedures; ureteroscopy - bleeding, pain, infection, damage to surrounding structures, ureteral perforation, stricture, inability to treat the stone and need for additional procedures. PCNL - most invasive, risk of bleeding, urine leak, damage to surrounding organs If a stent is placed, pt understands this is not permanent and needs to be removed or exchanged within 3 months to prevent encrustation, infection, permanent renal damage and need for more invasive procedures. Not on any blood thinners. No history of CVA or MA. -Schedule cysto, L ureteroscopy, L laser litho with possible stent placement on string. The procedural risks, benefits, details, and treatment alternatives have been discussed with the patient. These include bleeding, infection, inability to break or retrieve all of the stone, injury to the ureter (the tube which connects the kidney to the bladder), injury to the kidney scarring of the ureter, and need for repeat procedures, among others. Full informed consent has been obtained. Will order General anesthesia. -Continue metabolic stone workup in the future 2. BPH with urinary obstruction (N40.1: Benign prostatic hyperplasia with lower urinary tract symptoms) IPSS 12-13 (17). UA today negative for blood or infections. No urinary complaints. Pt taking flomax 0.4mg daily. -Continue wo changes 3. Prostate cancer screening (Z12.5: Encounter for screening for malignant neoplasm of prostate) PSA: 07/29/21 - 1.3 04/30/22 - 1.2 08/24/23 - 1.8 low and stable. -Repeat in 1-2 years Follow-up With When Contact Information Greg REYEZ, Anne-Marie Menchaca, URL, URO Additional Instructions: sched laser litho Patient Education Lithotripsy, Care After Lithotripsy Ellie Conteh, personally scribed for Dr. Garza on 09/16/2023 14:06:58. . Documentation recorded by the scribeEllie , accurately reflects the services(s) I performed and decisions made by me. Authenticated by Dr. Garza on 09/16/2023 14:18:21. 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 Normal [facility] Comment on above: Result Comment: Elec tronically Signed By: Anne-Marie Garza MD\.br\Date and Time Signed: 09/16/23 14:19 EDT\.br\Electronically Co-Signed By: Ellie Xavier\.br\Date and Time Co-Signed: 09/16/23 14:08 EDT ED Note-Physicianon 09-14-19 ED Note-Physician ED Note-Physician Basic Information Time Seen: Que Kaba DO 09/13/2023 07:22 Chief Complaint pt c/o 2-3 wks of R hip pain that radiates down leg, worsening throughout the weekend. History of Present Illness Sick 7-year-old male comes to the ED for evaluation of back pain. This has been a waxing and waning but progressive issue over the last 3 weeks. He points to the right lower lumbar/hip area as the area of tenderness. There are some radiation down the right leg. No specific trauma to the area but he does do manual labor with daily physical activity. Does have underlying spondylosis and rheumatoid arthritis. He is on prednisone and meloxicam chronically. No acute weakness or paresthesias. No associate abdominal pain, nausea, vomiting. No urinary difficulty. Review of Systems A 10 point review of systems is negative except as noted above. Medical and Surgical History: Reviewed and noted Social history: Lives at home Tobacco: Denies Physical Exam Vitals & Measurements T: 36.9 ?C(Oral) HR: 72(Peripheral) RR: 18 BP: 180/102 SpO2: 98% HT: 188 cm WT: 120 kg BMI: 33.95 Nurses notes and vital signs reviewed and patient is not hypoxic. General: The patient appears well, resting comfortably. Skin: Warm, dry. Head: Atraumatic. Neck: No JVD. Eye: Normal conjunctiva. Ears, Nose, Mouth, and Throat: Moist mucous membranes. Cardiovascular: Strong distal pulses. Chest wall: Respiratory: Respirations are nonlabored. Back: Tenderness over the right sacroiliac region. No midline tenderness. No CVA tenderness. Full range of motion. No evidence of lower extremity neurovascular compromise. Musculoskeletal: Normal ROM with no gross deformity. Patient able to ambulate without any significant difficulty. Gastrointestinal: Soft and nontender. Urological: Neurological: Awake and alert. No focal deficits. Follows commands. Psychiatric: Cooperative. Medical Decision Making Patient presents with back pain. He has a history of lumbar spondylosis. Exam most consistent with sciatica. Imaging shows no acute findings. He is already on steroids and anti-inflammatories chronically. No evidence of neurovascular compromise. He is medicated for pain and discharged home to follow-up with his PCP. He states he already has an appointment with orthopedics in 2 days as well. Patient was encouraged to return to the ED if symptoms worsen or change. Assessment/Plan Back pain (M54.9: Dorsalgia, unspecified) Ordered: acetaminophen-oxycodone , 1 tab(s), Oral, q6hr as needed for pain for 3 day(s), 15 tab(s), Refill(s) 0, [id number], 188, cm, 09/13/23 7:23:00 EDT, Height/Length Dosing, 120, kg, 09/13/23 7:23:00 EDT, Weight Dosing Orders: morphine, 8 mg = 2 mL, Injection, IntraMuscular, Once, Stop date 09/13/23 7:26:00 EDT, STAT, Start date 09/13/23 7:26:00 EDT, 09/13/23 7:26:00 EDT ondansetron, 4 mg = 1 tab(s), Tab-Dis, Oral, Once, Stop date 09/13/23 7:26:00 EDT, STAT, Start date 09/13/23 7:26:00 EDT, 09/13/23 7:26:00 EDT XR Spine Lumbosacral 2 or 3 Views Medications Administered Given morphine 4 mg/mL Inj, 8 mg, IntraMuscular Zofran ODT 4 mg Tab-Dis, 4 mg, Oral Disposition Plan Patient Discharge Condition Disposition: Discharged home Condition: Improved and stable Counseled: Patient and/or family were counseled to workup, results, treatment plan and follow-up recommendations Discharge Prescription List Prescriptions Percocet 5 mg-325 mg oral tablet, 1 tab(s), Oral, q6hr, PRN Follow-up With When Contact Information CESAR DAVIS In 3 days 09/16/2023 EDT [address] [id number] Business (1) Additional Instructions: Patient Education Acute Back Pain, Adult Attestation I performed a substantive part of the MDM during the patient?s E/M visit. I personally made or approved the documented management plan and acknowledge its risk of complications. (Independent Interpretation) My (EKG/X-Ray/US/CT) interpretation as above. (Discussion) Management/test interpretation discussed with APC. This report was transcribed using voice recognition software. Every effort was made to ensure accuracy, however, inadvertently computerized cloth cutter mistakes may be present. Appropriate healthcare PPE was used in evaluating this patient. 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 Normal [facility] Comment on above: Result Comment: Elec tronically Signed By: Walter Banuelos PA-C\.br\Date and Time Signed: 09/13/23 08:55 EDT\.br\Electronically Co-Signed By: Que Kaba DO\.br\Date and Time Co-Signed: 09/14/23 10:26 EDT ED Clinical Summaryon 2023 ED Clinical Summary ED Clinical Summary [place] [address] ED Clinical Summary Person Information Name: NIKOLAS CALVO [facility] Age: 67 Years : 1955 Sex: Male Language: Yakut PCP: CESAR DAVIS DO Marital Status: Visit Id: Visit Reason: Leg pain-swelling; Hip pain-swelling; pain going down right leg Speciality: Acuity: 4 Enc Type: Emergency Med Service: Emergency Arrival: 09/13/2023 07:13:33 Discharge: 09/13/2023 08:56:17 LOS: 000 01:43 Checkin: 09/13/2023 07:13:33 Checkout: 09/13/2023 08:56:17 Dispo Type: Home (Routine DC) EVENTS: Event Name Event Status Request Date/Time Start Date/Time Complete Date/Time Arrive Complete 09/13/2023 07:13:33 09/13/2023 07:13:33 09/13/2023 07:13:33 Document Home Meds Request 09/13/2023 07:13:33 Triage Complete 09/13/2023 07:13:33 09/13/2023 07:23:48 09/13/2023 07:23:48 Bed Assign Complete 09/13/2023 07:16:35 09/13/2023 07:16:35 09/13/2023 07:16:35 Dr Exam Complete 09/13/2023 07:16:35 09/13/2023 07:22:14 09/13/2023 07:22:14 RN Exam Complete 09/13/2023 07:16:35 09/13/2023 07:24:32 09/13/2023 07:24:32 Registration Request 09/13/2023 07:22:14 Dr Exam Complete 09/13/2023 07:25:24 09/13/2023 07:25:24 09/13/2023 07:25:24 X-Ray Complete 09/13/2023 07:26:10 09/13/2023 07:41:37 09/13/2023 08:08:18 Meds Admin Complete 09/13/2023 07:27:12 09/13/2023 07:36:11 Wet Read Complete 09/13/2023 08:08:18 09/13/2023 08:11:46 09/13/2023 08:11:46 Discharge Complete 09/13/2023 08:46:34 09/13/2023 08:56:24 09/13/2023 08:56:24 Transfer Complete 09/13/2023 08:56:24 09/13/2023 08:56:24 09/13/2023 08:56:24 ADDRESS: [id number] [facility] [id number] PHYS DOC NOTES: MEDICAL INFORMATION: Prescriptions Given: New Medications [id number], [address], [place] [id number], [phone] acetaminophen-oxycodone (Percocet 5 mg-325 mg oral tablet) 1 Tablets By Mouth every 6 hours as needed as needed for pain for 3 Days. Refills: 0. Medications to Continue with No Changes Other Medications amlodipine 5 Milligram By Mouth every day. atorvastatin (atorvastatin 20 mg Tab) 1 Tablets By Mouth at bedtime. levothyroxine (Synthroid) 175 Microgram By Mouth every day. losartan (losartan 50 mg Tab) 1 Tablets By Mouth every day. meloxicam (meloxicam 15 mg Tab) 1 Tablets By Mouth every day. metformin 1,000 Milligram By Mouth 2 times a day. sitagliptin (Januvia 50 mg Tab) 1 Tablets By Mouth every day. tamsulosin (Flomax 0.4 mg Cap) 1 Capsules By Mouth every day. Refills: 11. PATIENT EDUCATION INFORMATION: Instructions: Acute Back Pain, Adult Follow up: With: Address: When: CESAR DAVIS [address] [place] [address] Business (1) In 3 days 09/16/2023 DIAGNOSIS: Back pain Normal [facility] ED Patient Summaryon 024 ED Patient Summary ED Patient Summary [address] [address] Patient Discharge Instructions Person Information Name: NIKOLAS CALVO Age: 67 Years Arrival Date: 09/13/2023 07:13:33 Discharge Diagnosis: Back pain Primary Care Physician: CESAR DAVIS DO Provider Information Primary Provider: Que Kaba DO Advanced Traffic Assistant:Walter Banuelos PA-C The exam and treatment you received in the Emergency Department were for an urgent problem and are not intended as complete care. It is important that you follow up with a doctor, nurse practitioner, or physician?s office assistant receptionist for ongoing care. If your symptoms become worse or you do not improve as expected and you are unable to reach your usual health care provider, you should return to the Emergency Department. We are available 24 hours a day. NIKOLAS CALVO has been given the following list of patient education materials, prescriptions and follow-up instructions: Follow-up Instructions: With: Address: When: CESAR DAVIS [address] [place] [address] Business (1) In 3 days 09/16/2023 In the event that this physician does not participate in your insurance network, please consult with your insurance company to find a nearby participating provider. Patient Education Materials: Acute Back Pain, Adult A MESSAGE TO ALL PATIENTS REGARDING OPIOIDS PRESCRIPTION OPIOIDS: WHAT YOU NEED TO KNOW Prescription opioids can be used to help relieve wgxmregi-jb-tlaumi pain and are often prescribed following a surgery or injury, or for certain health conditions. These medications can be an important part of the treatment but also come with serious risks. It is important to work with your healthcare provider to make sure you are getting the safest, most effective care. WHAT ARE THE RISKS AND SIDE EFFECTS OF OPIOID USE? Prescription opioids carry serious risks of addiction and overdose, especially with prolonged use. An opioid overdose, often marked by slowed breathing, can cause sudden . The use of prescription opioids can have a number of side effects as well, even when taken as directed: ? Tolerance?meaning you might need to take more of the medication for the same pain relief ? Physical dependence?meaning you have symptoms of withdrawal when a medication is stopped ? Increased sensitivity to pain ? Constipation ? Nausea, vomiting, and dry mouth ? Sleepiness and dizziness ? Confusion ? Depression ? Low levels of testosterone that can result in lower sex drive, energy, and strength ? Itching and sweating RISKS ARE GREATER WITH: ? History of drug misuse, substance use disorder, or overdose ? Mental health conditions (such as depression or anxiety) ? Sleep apnea ? Older age (65 years and older) ? Avoid alcohol while taking prescription opioids. Also, unless specifically advised by your health care provider, medications to avoid include: ? Benzodiazepines (such as Xanax or Valium) ? Muscle relaxants (such as Soma or Flexeril) ? Hypnotics (such as Ambien or Lunesta) ? Other prescription opioids KNOW YOUR OPTIONS Talk to your health care provider about ways to manage your pain that don?t involve prescription opioids. Some of these options may actually work better and have fewer risks and side effects. Options may include: ? Pain relievers such as acetaminophen, ibuprofen, and naproxen ? Some medication that are also used for depression or seizures ? Physical therapy and exercise ? Cognitive behavioral therapy, a psychological, goal-directed approach, in which patients learn how to modify physical, behavioral, and emotional triggers of pain and stress. IF YOU ARE PRESCRIBED OPIOIDS FOR PAIN: ? Never take opioids in greater amounts or more often than prescribed. ? Follow up with your primary health care provider. o Work together to create a plan on how to manage your pain. o Talk about ways to help manage your pain that don?t involve prescription opioids. o Talk about any and all concerns and side effects. ? Help prevent misuse and abuse o Never sell or share prescription opioids. o Never use another person?s prescription opioids. ? Store prescription opioids in a secure place and out of reach of others (this may include visitors, children, friends, and family). ? Safely dispose of unused prescription opioids: Find your community drug take-back program or your pharmacy mail-back program, or flush them down the toilet, following guidance from the Food and Drug Administration (www.fda.gov/Drugs/Reso urcesForYou). ? Visit www.cdc.gov/drugoverdos e to learn about the risks of opioids abuse and overdose. ? If you believe you may be struggling with addiction, tell your health managed care specialist and ask for guidance or call [facility]S National Helpline at 8-554-989-HELP. daron Dover (more content not included)... Normal [facility] XR Spine Lumbosacral 2 or 3 Viewson 09-13-2023 XR Spine Lumbosacral 2 or 3 Views Exam Date/Time: 09/13/2023 08:08 EDT Reason for Exam: Pain, Traumatic Report IMPRESSION: MILD DEXTROSCOLIOSIS AND MODERATE LUMBAR SPONDYLOSIS. EXAM: XR Spine Lumbosacral 2 or 3 Views DATE: 09/13/2023 7:41 AM CLINICAL HISTORY: Pain, Traumatic. COMPARISON: CT abdomen and pelvis 09/06/2023 TECHNIQUE: AP, lateral, and coned-down lateral radiographs of the lumbar spine were obtained. FINDINGS: Mild rotary dextroscoliosis, mild to moderate disc space narrowing, degenerative endplate and hypertrophic facet changes appear unchanged from the recent CT, with approximately 2 to 3 mm of retrolisthesis of T12 over L1-L2 L3.. There is no compression, fracture, worrisome bone destruction, or other significant changes identified. The sacroiliac joints are unremarkable. Ordering Provider: Walter Banuelos FINAL REPORT Dictated: 09/13/2023 11:51 am Thomas Moy MD Signed (Electronic Signature): 09/13/2023 11:51 am Signed by: Thomas Moy MD Transcribed by: PARK Technologist: ANTON, Technical Comments Radiation Dose: Ka,r in mGy = . DAP = . Normal [facility] CT Abdomen/Pelvis w/o Contra ston 09-06-2023 CT Abdomen/Pelvis w/o Contrast Exam Date/Time: 09/06/2023 12:30 EDT Reason for Exam: L renal stones;Pain Report IMPRESSION: LEFT-SIDED NONOBSTRUCTING NEPHROLITHIASIS. PROBABLE SIMPLE LEFT RENAL CYST. THE BLADDER WALL IS THICKENED. LIKELY ARTIFACTUAL DUE TO INCOMPLETE DISTENTION. CORRELATE CLINICALLY WITH PATIENT HISTORY AND VASCULAR NO WITH URINALYSIS. CLINICAL HISTORY: Pain, L renal stones COMPARISON: November 01, 2018 0236 hours. FINDINGS: Multiple serial axial images from the base lung through the pelvis both sagittal coronal reconstruction performed without intravenous or oral administration of contrast. The visualized base of lungs show no focal parenchymal abnormality. No pleural effusions. The visualized portion of liver shows no focal parenchymal abnormalities or intrahepatic biliary dilatation. The gallbladder, spleen, pancreas, adrenals, are unremarkable. The right kidney shows no significant perinephric stranding. No nephrolithiasis. No hydronephrosis. Left kidney shows mild perinephric stranding. There are calculi seen within the inferior pole of the left kidney. The largest measures approximately 1.4 cm. No hydronephrosis. There is a partially exophytic cystic area at the inferior pole measuring 2.8 cm. The bladder wall is thickened. Likely artifactual due to incomplete distention. It measures approximately 1.3 cm. No bladder calculi. Large and small bowel show no sign of obstruction. The appendix not visualized. There is diverticulosis but no diverticulitis. There are scattered radiopaque densities throughout the large bowel. Correlate with patient possible mrkn-tkh-gjnvifb medication. Small bowel hernia containing mesenteric fat Small left inguinal hernia containing mesenteric fat No free air. No free fluid The visualized abdominal aorta is of normal size and caliber. No significant retroperitoneal adenopathy. Report Is multilevel degenerative change with bridging ossified the visualized thoracolumbar spine. All CT scans at this facility use dose modulation, iterative reconstruction, and/or weight based dosing when appropriate to reduce radiation dose to as low as reasonably achievable. Ordering Provider: , FINAL REPORT Dictated: 09/06/2023 5:01 pm Donnell Ca Signed (Electronic Signature): 09/06/2023 5:01 pm Signed by: Donnell Ca Transcribed by: PARK Technologist: MIA Technical Comments Rectal Contrast Given? No Oral contrast amount in ml's: 0 Normal [facility] Ambulatory Visit Summaryon 0 08-26-2023 Ambulatory Visit Summary Ambulatory Visit Summary NIKOLAS CALVO :1955 Visit Date:08/26/2023 Ambulatory Visit Instructions Your Diagnosis BPH with urinary obstruction Your Care Team Attending Physician - SHAYNA DICKEY PA-C Primary Care Physician - CESAR DAVIS DO This Is Your Medications List amlodipine atorvastatin (atorvastatin 20 mg Tab) levothyroxine (Synthroid) losartan (losartan 50 mg Tab) meloxicam (meloxicam 15 mg Tab) metformin sitagliptin (Januvia 50 mg Tab) Procedures Performed Colonoscopy (09/11/2022), ORIF - Open reduction of fracture of ankle with internal fixation (03/14/2019), Cystoscopic removal of ureteric stent (11/10/2018), Cystoscopic laser lithotripsy of ureteric calculus (11/02/2018), Colonoscopy (12/24/2017), Colonoscopy (10/14/2011), Bilateral vasectomy (02/15/1987), Thyroidectomy. Discharge Vitals Heart Rate (Peripheral) 67 Blood Pressure 158/91 Height 188 cm Height 74 in Weight 125 kg Weight 275 lb BMI 35.37 Medications What How Much When Instructions Unchanged amlodipine 5 Milligram By Mouth Every day Unchanged atorvastatin (atorvastatin 20 mg Tab) 1 Tablets By Mouth At bedtime Unchanged levothyroxine (Synthroid) 175 Microgram By Mouth Every day Unchanged losartan (losartan 50 mg Tab) 1 Tablets By Mouth Every day Unchanged meloxicam (meloxicam 15 mg Tab) 1 Tablets By Mouth Every day Unchanged metformin 1,000 Milligram By Mouth 2 times a day Unchanged sitagliptin (Januvia 50 mg Tab) 1 Tablets By Mouth Every day Allergies No Known Allergies Problems Ongoing - Any problem that you are currently receiving treatment for. 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 Please share your experience with us by completing your survey. We appreciate your feedback and thank you for choosing us for your care. Normal [facility] Urology Office/Clinic Noteon 08-26-2023 Urology Office/Clinic Note Urology Office/Clinic Note Chief Complaint 1 yr fu HPI Staff Former DLS pt Pt is here for a 1 year F/U with KUB and ADELAIDE, PSA from PCP (all done @ [facility]) Previous DX; BPH, Kidney stone CMP done 06/11/23 BUN(18) CREAT(0.9) A1C- 01/26/23- 6.8 KUB 08/11/23 ADELAIDE 08/11/23 PSA 08/24/23- 1.8 States that he did stop the flomax after last follow up but states that since he has been off of it he feels like he should maybe try it again to see if it helps his frequency at night IPSS prior was 10 today is 17 Dysuria: no Incomplete bladder emptying: no Hematuria: no Frequency: no Urgency: mild Nocturia: 3x a night Stream: good stream Leaking: no Post void dripping: no Wearing pads/ Depends: no Urge incontinence: no Stress incontinence: no Incontinence without Sensory Awareness: no Abdominal pain: no Flank pain: no Sexual complaints: no Review of Systems PHQ Score Initial Depression Screen Score: 0 SCORE no fever, chills, malaise, myalgia. no rash/lesions. no chest pain, palpitations, or SOB. no abdominal pain, nausea, vomiting. no unilateral calf swelling, redness, pain Physical Exam Vitals & Measurements HR: 67(Peripheral) BP: 158/91 HT: 74 in HT: 188 cm WT: 125 kg WT: 275 lb BMI: 35.37 General: nontoxic, NAD Mouth: moist mucosa Lungs: normal respiratory effort Cardio: regular rate, good distal perfusion Abdomen: nondistended, no suprapubic distention or tenderness, no CVA tenderness Neurologic: Grossly normal Skin: No rashes or suspicious lesions Assessment/Plan UA completed in office today shows no microhematuria or signs of infection. 1. BPH with urinary obstruction (N40.1: Benign prostatic hyperplasia with lower urinary tract symptoms) IPSS 17 QOL 4 Pt would like to try Flomax again. Last time didn't think it helped that much. But says his baseline sx are worse now. Risks/benefits/side effects discussed. Rx sent to [facility]. F/u 2-3 mos to reassess. Ordered: Urnls Dip Stick Auto w/o Microscopy POC [id number] 2. Kidney stone (N20.0: Calculus of kidney) hx lithotripsy for large obstructing ureteral stone previously KUB 08/11/23 shows L renal stones, sizes not provided ADELAIDE same day suggests 9mm L renal stone We spoke about difficulty in sizing w ADELAIDE. Pt hasn't had CT in 5 yrs. Will go ahead and update at this time to assess true size of L renal stones. Pt aware if truly 9mm, would recommend ESWL. If shows significant stone burden, will need scheduled w MD to discuss tx options. If shows small stones, can call results. Ordered: CT Abdomen/Pelvis w/o Contrast 3. Prostate cancer screening (Z12.5: Encounter for screening for malignant neoplasm of prostate) PSA: 07/29/21 - 1.3 04/30/22 - 1.2 08/24/23 - 1.8 low and stable. repeat in 1 yr. 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 Medications amlodipine, 5 mg, Oral, Daily atorvastatin 20 mg Tab, 20 mg= 1 tab(s), Oral, Bedtime Flomax 0.4 mg Cap, 0.4 mg= 1 cap(s), Oral, Daily, 11 refills Januvia 50 mg Tab, 50 mg= 1 tab(s), Oral, Daily losartan 50 mg Tab, 50 mg= 1 tab(s), Oral, Daily meloxicam 15 mg Tab, 15 mg= 1 tab(s), Oral, Daily metformin, 1000 mg, Oral, BID Synthroid, 175 mcg, Oral, Daily Allergies No Known Allergies Social History Alcohol - Denies Alcohol Use, 11/01/2018 Substance Abuse - Denies Substance Abuse, 11/01/2018 Tobacco - Denies Tobacco Use, 11/01/2018 Never (less than 100 in lifetime) Tobacco Use:. Never Smokeless Tobacco Use:., 08/25/2022 Family History Alcoholism: Father. Primary malignant neoplasm of lung: Mother. Immunizations Vaccine Date Status Comments SARS-CoV-2 (COVID-19) [id number] 01/05/2022 Recorded 2022-06-02: TPV65 influenza virus vaccine, inactivated 11/04/2021 Recorded influenza virus vaccine, naomi (more content not included)... Normal [facility] Comment on above: Result Comment: Elec tronically Signed By: NOBLE MINOR, SHAYNA Vega\.br\Date and Time Signed: 08/26/23 10:47 EDT PSA Screen, Totalon 08-24-19 Prostate specific Ag [Mass/Vol] 1.8 ng/mL Normal 0.1-3.5 [facility] Comment on above: Result Comment: The concentration of PSA determined by different manufacturers can vary due to differences in assay methods and reagent specificity. Values obtained from different assay methods cannot be used interchangeably. The methodology used for this result was chemiluminescence using [employer]'s Access Hybritech PSA reagent. Performed By: #### 1 [id number] #### [facility] [address] [place] [address] US Renalon 08-12-2023 US Renal Exam Date/Time: 08/11/2023 07:20 EDT Reason for Exam: kidney stones;Other (please specify) Report IMPRESSION: SIMPLE RENAL CYST AT THE INFERIOR POLE OF THE LEFT KIDNEY. NONOBSTRUCTING CALCULI INFERIOR POLE LEFT KIDNEY CLINICAL HISTORY: kidney stones. COMPARISON: NONE. The right kidney measures 14.1 x 6.1 x 6.1 in the long, AP and transverse dimension. Cortical thickness shows 1.9 cm No surrounding perinephric fluid collection. No hydronephrosis. No masses. The left kidney measures 14.1 x 5.9 x 5.2 and 1, AP and transverse dimension. No surrounding perinephric the collection. Cortical thickness is 2.1 cm. No surrounding perinephric fluid collection. No hydronephrosis. There is a partially exophytic cystic area at the inferior pole measuring 2.8 cm. Thin-walled with good through transmission. Probable simple renal cyst. There is a hyperechoic foci with posterior acoustic shadowing measuring 9 mm at the inferior pole. Likely renal calculi. Ordering Provider: , FINAL REPORT Dictated: 08/12/2023 10:40 pm Donnell Ca Signed (Electronic Signature): 08/12/2023 10:40 pm Signed by: Donnell Ca Transcribed by: PARK Technologist: HW Normal [facility] Consent for Treatmenton 07-17 Consent for Treatment [id number] IFF Normal [facility] XR Abdomen 1 Viewon 08-11-19 24 XR Abdomen 1 View Exam Date/Time: 08/11/2023 07:27 EDT Reason for Exam: N20.0;Kidney stone Report IMPRESSION: Nonspecific bowel gas pattern Faint calculi or fluffy calcification overlying the mid to lower pole left renal shadow. Consider CT scan renal stone protocol to further evaluate if clinically indicated EXAMINATION: Abdomen CLINICAL HISTORY: Nephrolithiasis, follow-up COMPARISONS: May 01, 1999 2306 hours FINDINGS: 2 views are submitted. Bowel gas seen both large and small bowel. Bowel gas to the level of the distal colon. There is stool scattered throughout the large bowel. The bowel gas pattern is nonspecific nonobstructive. Faint calculi/left calcification calcification as seen overlying the mid to lower pole left renal shadow. The calculi seen in the pelvis are unchanged. Likely representing vascular calcification. Ordering Provider: , FINAL REPORT Dictated: 08/11/2023 10:05 pm Donnell Ca Signed (Electronic Signature): 08/11/2023 10:05 pm Signed by: Donnell Ca Transcribed by: PARK Technologist: KATE Technical Comments Radiation Dose: Ka,r in mGy = . DAP = . Normal [facility] Reminderson 07-26-2023 Reminders - From: Brenda Sherman To: RIN Dickey; Sent: 07/22/2022 13:33:20 EDT Show up: 06/22/2023 13:32:00 EDT Subject: schedule ADELAIDE Due Date/Time: 07/23/2023 13:32:00 EDT Please schedule 1 yr ADELAIDE for pt. He will also need KUB for 1 yr appt and PSA from PCP. Pt is scheduled to see ALFRED 07/27/23. No record of KUB nor ADELAIDE since last encounter. Last PSA on [facility] 08/12/22- 1.3 (will need new PSA for 2023) Did call and speak to pt's . Appt w/ALFRED RS'd to 08/26/23 Order for ADELAIDE/KUB & PSA sent to [facility]. They will call pt schedule (unable to schedule w/). Normal [facility] .Interpretation:on 06-01-202 4 HCV Ab IA Ql Comment Invalid Interpretation Code [facility] Comment on above: Result Comment: Not infected with HCV unless early or acute infection is suspected (which may be delayed in an immunocompromised individual), or other evidence exists to indicate HCV infection. Performed at: [facility] [id number] PhD Geoff Hernandez Performed By: #### 2 [id number] #### [facility] [address] [place] [address] HCV Antibody RFX to Quant PC Mundo 07-17-2023 HCV IgG IA Ql Non-Reactive Invalid Interpretation Code Non Reactive [facility] Comment on above: Result Comment: Perf ormed at: [address] [id number] PhD Geoff Hernandez Performed By: #### 2 [id number] #### [facility] [address] [place] [address] Hep B Core Ab, Toton 024 HBV core Ab IA Ql Negative Invalid Interpretation Code Negative [facility] Comment on above: Result Comment: Perf ormed at: [address] [id number] PhD Geoff Hernandez Performed By: #### 2 [id number] #### [facility] [address] [place] [address] Hep Bs Abon 07-17-2023 HBV surface Ab Ql (S) Non-Reactive Invalid Interpretation Code [facility] Comment on above: Result Comment: Non Reactive: Inconsistent with immunity, less than 10 mIU/mL Reactive: Consistent with immunity, greater than 9.9 mIU/mL Performed at: [address] [id number] PhD Geoff Hernandez Performed By: #### 2 [id number] #### [facility] [address] [place] [address] Hep Bs Agon 07-17-2023 HBV surface Ag IA Ql Negative Invalid Interpretation Code Negative [facility] Comment on above: Result Comment: Perf ormed at: [facility] [address] [place], [place] [id number] PhD Geoff Hernandez Performed By: #### 2 [id number] #### [facility] [address] [place] [address] Consent for Treatmenton 06-17 Consent for Treatment [id number] IFF Normal [facility] Physician Orderon 07-16-2023 Physician Order [id number] TIFF Normal [facility] Lab Miscellaneous-LCon 06-14 Lab Miscellaneous COMMENT Invalid Interpretation Code [facility] Comment on above: Result Comment: Test Ordered: [id number] KEV by IFA Rfx Titer/Pattern KEV by IFA Rfx Titer/Pattern Negative CB Negative <1:80 Borderline 1:80 Positive >1:80 ICAP nomenclature: AC-0 For more information about Hep-2 cell patterns use ANApatterns.org, the official website for the International Consensus on Antinuclear Antibody (KEV) Patterns (ICAP). Performed at: [address] [id number] PhD Geoff Hernandez Performed By: #### 1 [id number] ####[place] [address] [place] [address] CCP Antibodies IgG/IgAon Cyclic citrullinated peptide IgA+IgG IA Qn 4 unit(s) Invalid Interpretation Code 0-19 [facility] Comment on above: Result Comment: Nega tive <20 Weak positive 20 - 39 Moderate positive 40 - 59 Strong positive >59 Performed at: [address] [id number] PhD Geoff Hernandez Performed By: #### 1 1977676, 45988177, 5536783, 6864530, 9760707, 7293932, 262836150, 49027161 ####[facility] [address] [place] [address] RF Quanton 06-12-2023 Rheumatoid factor Qn [IU]/mL Invalid Interpretation Code <14.0 [facility] Comment on above: Result Comment: Perf ormed at: [facility] [id number] PhD Richardemilee David Performed By: #### 1 [id number], 13442610, 4718337, 8642646, 1536369, 5934257, 622754251, 04627289 ####[facility] [address] [place] [address] XR Hand 3+ Views Bilaton XR Hand 3+ Views Bilat Exam Date/Time: 06/11/2023 08:46 EDT Reason for Exam: hand pain Report IMPRESSION: No acute findings. Degenerative changes. No erosions. EXAMINATION/TECHNIQUE: XR Hand 3+ Views Bilat HISTORY: Pain and stiffness in both hands and wrists. COMPARISON: None RESULT: No evidence for acute fracture. No dislocation. No destructive osseous lesions. No erosions. Mild to moderate degenerative changes throughout the hands, worst at the right MCP joints. Chronic appearing deformity involving the left fourth digit distal phalanx in the region of the tuft, which may be sequela of remote injury. No other significant abnormality. Ordering Provider: MARJORIE GARZA FINAL REPORT Dictated: 06/12/2023 5:34 pm Fili Clement MD Signed (Electronic Signature): 06/12/2023 5:34 pm Signed by: Fili Clemnet MD Transcribed by: PARK Technologist: NINI, Technical Comments Radiation Dose: Ka,r in mGy = na DAP = na Normal [facility] CBC w/ Auto Diffon 4 Basophils/100 WBC (Bld) 0.4 % Normal 0.0-2.0 [facility] Comment on above: Performed By: #### 1 8404513, 52836931, 8984493, 4291900, 9474038, 1577371, 384453115, 16763572 ####[facility] [address] [place] [address] Basophils/Leukocyt es Auto (Bld) [Pure # fraction] 0.0 E9/L Normal 0.0-0.2 [facility] Comment on above: Performed By: #### 1 5151012, 21471463, 2259183, 0126316, 7871246, 8657227, 343969382, 01001294 ####[facility] [address] [place] [address] Eosinophils (Bld) [#/Vol] 0.1 E9/L Normal 0.0-0.5 [facility] Comment on above: Performed By: #### 1 5469930, 74789230, 1431138, 7846386, 2962143, 0823949, 101490734, 31473330 ####[address] [place] [address] Eosinophils/100 WBC (Bld) 1.5 % Normal 0.0-8.0 [facility] Comment on above: Performed By: #### 1 9875567, 74008809, 0734727, 4215133, 8718370, 5455738, 446724939, 94871808 ####[address] [place] [id number] Erythrocyte distribution width (RBC) [Ratio] 14.4 % High 10.9-14.2 [facility] Comment on above: Performed By: #### 1 3384185, 90896770, 1960672, 3875009, 6955667, 2433958, 092941718, 27741428 ####[address] [place] [address] Hematocrit (Bld) [Volume fraction] 40.0 % Normal 37.7-49.0 [facility] Comment on above: Performed By: #### 1 7485144, 78423242, 2819321, 1621287, 6449804, 4801096, 580991073, 56565548 ####[address] [address] Hemoglobin (Bld) [Mass/Vol] 13.3 g/dL Low 13.5-17.5 [facility] Comment on above: Performed By: #### 1 2720262, 56670548, 6489658, 1007587, 3357212, 4312793, 352848521, 54629122 ####[facility] [address] [place] [address] Lymphocytes (Bld) [#/Vol] 1.6 E9/L Normal 1.0-4.0 [facility] Comment on above: Performed By: #### 1 2504227, 75476830, 2238595, 1030691, 7659230, 3908022, 854896020, 13801298 ####[address] [place] [address] Lymphocytes/100 WBC (Bld) 18.4 % Normal 14.0-50.0 [facility] Comment on above: Performed By: #### 1 9553156, 00506239, 6828316, 7175243, 0486332, 3518203, 912280661, 97508203 ####[address] [address] MCH (RBC) [Entitic mass] 29.2 pg Normal 27.0-34.0 [facility] Comment on above: Performed By: #### 1 5486800, 08778600, 0422774, 0188296, 9613653, 0412149, 180105175, 76857990 ####[address] [address] MCHC (RBC) [Mass/Vol] 33.3 g/dL Normal 31.4-36.0 [facility] Comment on above: Performed By: #### 1 5263843, 87469524, 2840047, 4537793, 4670596, 9806121, 630025185, 00121075 ####[address] [address] MCV (RBC) [Entitic vol] 87.7 fL Normal 80.0-100.0 [facility] Comment on above: Performed By: #### 1 4839559, 88130744, 5343427, 6522047, 9338625, 0147136, 898106536, 70327142 ####[facility] [address] [place] [address] Monocytes (Bld) [#/Vol] 0.6 E9/L Normal 0.2-1.0 [facility] Comment on above: Performed By: #### 1 0369853, 51477888, 6379299, 1664475, 2000677, 7183693, 599299338, 91661159 ####[address] [address] Neutrophils (Bld) [#/Vol] 6.3 E9/L Normal 2.0-7.5 [facility] Comment on above: Performed By: #### 1 0011795, 33899918, 1974486, 6256213, 7733060, 2918892, 033157778, 16022231 ####[address] [address] Neutrophils/100 WBC (Bld) 73.1 % Normal 36.0-75.0 [facility] Comment on above: Performed By: #### 1 4374518, 19437231, 6626575, 6766952, 7328225, 1430562, 796187731, 52283156 ####[address] [address] Platelet mean volume (Bld) [Entitic vol] 9.2 fL Normal 6.4-10.8 [facility] Comment on above: Performed By: #### 1 4555837, 90360514, 9551918, 6352595, 7803421, 8920416, 243304833, 91143887 ####[address] [address] Platelets (Bld) [#/Vol] 206.0 E9/L Normal 150.0-500.0 [facility] Comment on above: Performed By: #### 1 1999149, 87004952, 1205661, 8986400, 4575808, 2092608, 704076244, 92650430 ####[facility] [address] [place] [address] RBC (Bld) [#/Vol] 4.6 E12/L Normal 4.3-5.9 [facility] Comment on above: Performed By: #### 1 2290555, 28428096, 6868506, 8183158, 4042160, 6965925, 524231414, 81679990 ####[address] [place] [address] WBC corrected for nucl RBC Auto (Bld) [#/Vol] 8.6 E9/L Normal 4.0-11.0 [facility] Comment on above: Performed By: #### 1 5291405, 58916599, 7821136, 9101380, 8530623, 1137422, 662147556, 79149520 ####[address] [address] CMPon 06-11-2023 ALP [Catalytic activity/Vol] 45 Int._Unit/L Normal 21-98 [facility] Comment on above: Performed By: #### 1 0893659, 86035872, 8932728, 7402446, 6642476, 4055366, 583899208, 18058321 ####[address] [place] [address] Albumin [Mass/Vol] 4.3 g/dL Normal 3.3-5.0 [facility] Comment on above: Performed By: #### 1 6727602, 66174708, 7402141, 8842323, 5555676, 6937020, 875967289, 57787965 ####[address] [place] [address] Albumin/Globulin (S) [Mass conc ratio] 1.8 Normal 1.1-2.2 [facility] Comment on above: Performed By: #### 1 8949041, 05508188, 8045916, 2640422, 3456878, 0778038, 592601540, 56143601 ####[address] [place] [address] ALT No additional P-5'-P [Catalytic activity/Vol] 19 Int._Unit/L Normal 6-46 [facility] Comment on above: Performed By: #### 1 8956875, 68236390, 4057868, 8550610, 5374804, 4273620, 698565725, 05860701 ####[facility] [address] [place] [address] Anion gap [Moles/Vol] 13 mmol/L Normal 6-16 [facility] Comment on above: Performed By: #### 1 1744947, 31161321, 2860063, 6469658, 3375613, 1776348, 932601146, 30622410 ####[facility] [address] [place] [address] AST [Catalytic activity/Vol] 16 Int._Unit/L Normal 5-43 [facility] Comment on above: Performed By: #### 1 8491010, 29813015, 8985098, 4913634, 5254909, 8166419, 855258703, 58316794 ####[facility] [address] [place] [address] Bilirubin [Mass/Vol] 0.7 mg/dL Normal 0.0-1.1 [facility] Comment on above: Performed By: #### 1 6668337, 29393020, 4627224, 5103724, 3286212, 5036340, 787318488, 57978821 ####[facility] [address] [place] [address] Calcium [Mass/Vol] 9.1 mg/dL Normal 8.9-11.1 [facility] Comment on above: Performed By: #### 1 9787655, 28307268, 4727430, 3915247, 7046657, 1887788, 320665496, 20109995 ####[facility] [address] [place] [address] Chloride [Moles/Vol] 104 mmol/L Normal 101-111 [facility] Comment on above: Performed By: #### 1 5729069, 61061664, 6081591, 4327813, 6114977, 5687018, 160308394, 41228996 ####[facility] [address] [place] [address] CO2 [Moles/Vol] 25 mmol/L Normal 21-31 [facility] Comment on above: Performed By: #### 1 9654037, 10378399, 3786372, 1760988, 7100304, 4289693, 910126279, 64396189 ####[facility] [address] [place] [address] Creatinine [Mass/Vol] 0.9 mg/dL Normal 0.5-1.3 [facility] Comment on above: Performed By: #### 1 0151281, 26822787, 6919179, 3501731, 9477475, 4072526, 846214167, 07214051 ####[address] [address] Globulin (S) [Mass/Vol] 2.4 g/dL Normal 1.4-4.0 [facility] Comment on above: Performed By: #### 1 3411287, 89302880, 0151256, 7738748, 9129581, 4749161, 811963011, 03187117 ####[address] [place] [address] Glucose [Mass/Vol] 145 mg/dL Normal 55-199 [facility] Comment on above: Performed By: #### 1 7058495, 37440287, 3786629, 8468515, 8152145, 9819792, 209891286, 23741153 ####[address] [place] [address] Potassium [Moles/Vol] 4.1 mmol/L Normal 3.5-5.3 [facility] Comment on above: Performed By: #### 1 9274979, 96460161, 5744753, 6030113, 5592976, 4820580, 943573965, 77431188 ####[facility] [address] [place] [address] Protein [Mass/Vol] 6.7 g/dL Normal 6.0-7.8 [facility] Comment on above: Performed By: #### 1 7558578, 42845233, 1704907, 8319696, 9271708, 3999400, 081474048, 13263139 ####[facility] [address] [place] [address] Sodium [Moles/Vol] 138 mmol/L Normal 135-145 [facility] Comment on above: Performed By: #### 1 0212808, 24826763, 5718745, 3702858, 5376858, 3038010, 555593311, 08239617 ####[facility] [address] [place] [address] Urea nitrogen [Mass/Vol] 18 mg/dL Normal 5-21 [facility] Comment on above: Performed By: #### 1 [id number], [id number], 4239365, 0834251, 0216807, 5822893, [id number], [id number] ####[facility] [address] [place] [address] Urea nitrogen/Creatinin e [Mass ratio] 20 No Units Normal 10-20 [facility] Comment on above: Performed By: #### 1 [id number], [id number], 7752821, 3211947, 8732754, 2635985, [id number], [id number] ####[facility] [address] [place] [address] CRPon 06-11-2023 CRP [Mass/Vol] mg/L Normal <=1.9 [facility] Comment on above: Performed By: #### 1 [id number], [id number], 9400002, 5734761, 0904572, 7914223, [id number], [id number] ####[facility] [address] [place] [address] Consent for Treatmenton 05-17 Consent for Treatment [id number]#1.00T IFF Normal [facility] Lab Miscellaneous-LCon 06-10 Test Code 099213 Invalid Interpretation Code [facility] Comment on above: Performed By: #### 1 [id number] ####[facility] [address] [place] [address] Test Name KEV BY IFA Invalid Interpretation Code [facility] Comment on above: Performed By: #### 1 [id number] ####[address] [place] [address] Physician Orderon 06-11-2023 Physician Order [id number]#1.00 TIFF Normal [facility] Sed Rate Automatedon 024 ESR (Bld) [Velocity] 10 mm/h Normal 0-19 [facility] Comment on above: Performed By: #### 1 [id number], 32376196, 5973458, 1971580, 8505603, 8192838, 733322358, 47099900 ####[address] [place] [address] Uric Acidon 06-11-2023 Urate (U) [Mass/Vol] 5.2 mg/dL Normal 2.2-7.4 [facility] Comment on above: Performed By: #### 1 [id number], 33062224, 7147772, 5842753, 1089615, 1863613, 802904006, [id number] ####[facility] [address] [place] [address] eGFRon 06-11-2023 eGFR 93 mL/min/1.73 m2 Normal >=59 [facility] Comment on above: Order Comment: Order added by Discern Expert. Performed By: #### 1 [id number], 35882222, 0997547, 4231148, 6997743, 8848234, [id number], [id number] ####[facility] [address] [place] [address] KEV w/Reflex if POSon 2023 Nuclear Ab Ql (S) Negative Invalid Interpretation Code Negative [facility] Comment on above: Result Comment: Perf ormed at: [address] [id number] PhD Geoff Hernandez Performed By: #### 1 [id number], 8578038, 9779695, 032687743, 75224124, 28838955, [id number] ####[facility] [address] [place] [address] CCP Antibodies IgG/IgAon Cyclic citrullinated peptide IgA+IgG IA Qn 1 unit(s) Invalid Interpretation Code 0-19 [facility] Comment on above: Result Comment: Nega tive <20 Weak positive 20 - 39 Moderate positive 40 - 59 Strong positive >59 Performed at: [address] [id number] PhD Geoff Hernandez Performed By: #### 1 [id number], 2682766, 5994560, 197489973, 10892330, 30135070, [id number] ####[address] [place] [address] RF Quanton 05-13-2023 Rheumatoid factor Qn [IU]/mL Invalid Interpretation Code <14.0 [facility] Comment on above: Result Comment: Perf ormed at: [address] [id number] PhD Geoff Hernandez Performed By: #### 1 [id number], 3031345, 5434900, [id number], 34764082, 73976365, [id number] ####[facility] [address] [place] [address] CRPon 05-12-2023 CRP [Mass/Vol] mg/L Normal <=1.9 [facility] Comment on above: Performed By: #### 1 1336177, 5173119, 2930144, 035725893, 11232956, 35773042, [id number] ####[facility] [address] [place] [address] Consent for Treatmenton 04-16 Consent for Treatment [id number]#1.00T IFF Normal [facility] [id number] 05-12-2023 HbA1c (Bld) [Mass fraction] 6.7 % High <=5.9 [facility] Comment on above: Performed By: #### 1 [id number], 8658387, 0430292, 676450076, 22590542, 48671981, [id number] ####[facility] [address] [place] [address] Physician Orderon 05-12-2023 Physician Order [id number]#1.00T IFF Normal [facility] Sed Rate Automatedon 024 ESR (Bld) [Velocity] 10 mm/h Normal 0-19 [facility] Comment on above: Performed By: #### 1 3503292, 8345603, 0625537, 371838509, 68358714, 31123802, 181757589 ####[facility] [address] [place] [address] Uric Acidon 05-12-2023 Urate (U) [Mass/Vol] 4.8 mg/dL Normal 2.2-7.4 [facility] Comment on above: Performed By: #### 1 [id number], 1992245, 4183197, 859747725, 29629637, 04011327, 081738367 ####[facility] [address] [place] [address] Consent for Treatmenton 01-15 Consent for Treatment [id number]#1.00T IFF Normal [facility] MhrY8dwu 01-26-2023 HbA1c (Bld) [Mass fraction] 6.8 % High <=5.9 [facility] Comment on above: Performed By: #### 2 [id number], [id number] ####[facility] [address] [place] [address] Physician Orderon 01-26-2023 Physician Order [id number]#1.00T IFF Normal [facility] TSHon 01-26-2023 TSH Qn 3.20 m[IU]/L Normal 0.34-5.60 [facility] Comment on above: Performed By: #### 2 [id number], [id number] ####[facility] [address] [place] [address] COVID + FLU Quick Testingon 01-03-2023 SARS-CoV-2 (COVID-19) RNA KAM+probe Ql (Unsp spec) Negative [facility] Other COVID + FLU Quick Testing Negative [facility] Other Quick Strepon 01-03-2023 S. pyogenes Org specific cx Ql (Throat) Negative [facility] Other Quick Strep [facility] Other [id number] 02-18-2022 HbA1c (Bld) [Mass fraction] 7.3 % [facility] Other HgbAAusra [facility] Other Vital Signs Date Time Vital Sign Value Performing Clinician Facility 01-25-2024 09:08-0500 Body height 188 cm Jameson Grajeda DPM FAC[facility]AS Work Phone: [facility] 01-25-2024 09:08-0500 Body mass index (BMI) [Ratio] 34.79 kg/m2 Jameson NICKM FACFAS Work Phone: [facility] 01-25-2024 09:08-0500 Body weight 122.92 kg Jameson Grajeda DPM FAC[facility]AS Work Phone: [facility] 01-25-2024 09:08-0500 Diastolic blood pressure 75 mm[Hg] Jameson NICKM FACFAS Work Phone: [facility] 01-25-2024 09:08-0500 Heart rate 73 /min Jameson Dolce DPM FAC[facility]AS Work Phone: [facility] 01-25-2024 09:08-0500 Systolic blood pressure 128 mm[Hg] Jameson Dolce DPM FAC[facility]AS Work Phone: [facility] 12-27-2023 08:01-0500 Body height 188 cm Jameson Dolce DPM FAC[facility]AS Work Phone: [facility] 12-27-2023 08:01-0500 Body mass index (BMI) [Ratio] 34.79 kg/m2 Jameson Dolce DPM FAC[facility]AS Work Phone: [facility] 12-27-2023 08:01-0500 Body weight 122.92 kg Jameson Dolce DPM FAC[facility]AS Work Phone: [facility] 12-27-2023 08:01-0500 Diastolic blood pressure 77 mm[Hg] Jameson Dolce DPM FAC[facility]AS Work Phone: [facility] 12-27-2023 08:01-0500 Heart rate 73 /min Jameson Dolce DPM FAC[facility]AS Work Phone: [facility] 12-27-2023 08:01-0500 Systolic blood pressure 129 mm[Hg] Jameson Dolce DPM FAC[facility]AS Work Phone: [facility] 11-22-2023 08:51-0400 Body height 188 cm Jameson Dolce DPM FAC[facility]AS Work Phone: [facility] 11-22-2023 08:51-0400 Body mass index (BMI) [Ratio] 34.79 kg/m2 Jameson Dolce DPM FAC[facility]AS Work Phone: [facility] 11-22-2023 08:51-0400 Body weight 122.92 kg Jameson Dolce DPM FAC[facility]AS Work Phone: [facility] 11-22-2023 08:51-0400 Diastolic blood pressure 75 mm[Hg] Jameson Dolce DPM FAC[facility]AS Work Phone: [facility] 11-22-2023 08:51-0400 Heart rate 74 /min Jameson Lyudmilarick DPM FACFAS Work Phone: [facility] 11-22-2023 08:51-0400 Systolic blood pressure 128 mm[Hg] Jameson Dolce DPM FAC[facility]AS Work Phone: [facility] 11-08-2023 08:17-0400 Body height 188 cm Jameson Dolce DPM FAC[facility]AS Work Phone: [facility] 11-08-2023 08:17-0400 Body mass index (BMI) [Ratio] 34.67 kg/m2 Jameson Dolce DPM [facility]AS Work Phone: [facility] 11-08-2023 08:17-0400 Body weight 122.47 kg Jameson Dolce DPM FAC[facility]AS Work Phone: [facility] 11-08-2023 08:17-0400 Diastolic blood pressure 74 mm[Hg] Jameson Lyudmilarick DPM FAC[facility]AS Work Phone: [facility] 11-08-2023 08:17-0400 Heart rate 76 /min Jameson Dolce DPM FACFAS Work Phone: [facility] 11-08-2023 08:17-0400 Systolic blood pressure 126 mm[Hg] Jameson Dolce DPM FACFAS Work Phone: [facility] 10-21-2023 11:27-0400 Body height 182.88 cm [facility] 10-21-2023 11:27-0400 Body mass index (BMI) [Ratio] 35.4 kg/m2 [facility] 10-21-2023 11:27-0400 Body weight 118.44 kg [facility] 10-21-2023 11:27-0400 Diastolic blood pressure 80 mm[Hg] [facility] 10-21-2023 11:27-0400 Heart rate 71 /min [facility] 10-21-2023 11:27-0400 Respiratory rate 12 /min [facility] 10-21-2023 11:27-0400 Systolic blood pressure 147 mm[Hg] [facility] 10-20-2023 09:10-0400 Body height 188 cm Lexi Pocos DO Work Phone: [facility] 10-20-2023 09:10-0400 Body mass index (BMI) [Ratio] 34.67 kg/m2 Lexi Pocos DO Work Phone: [facility] 10-20-2023 09:10-0400 Body weight 122.47 kg Lexi Pocos DO Work Phone: [facility] 10-07-2023 09:37-0400 Body height 182.88 cm [facility] 10-07-2023 09:37-0400 Body mass index (BMI) [Ratio] 35.1 kg/m2 [facility] 10-07-2023 09:37-0400 Body weight 117.48 kg [facility] 10-07-2023 09:37-0400 Diastolic blood pressure 78 mm[Hg] [facility] 10-07-2023 09:37-0400 Heart rate 66 /min [facility] 10-07-2023 09:37-0400 Respiratory rate 12 /min [facility] 10-07-2023 09:37-0400 Systolic blood pressure 162 mm[Hg] [facility] 04-29-2023 09:05-0400 Body height 182.88 cm [facility] 04-29-2023 09:05-0400 Body mass index (BMI) [Ratio] 36 kg/m2 [facility] 04-29-2023 09:05-0400 Body weight 120.42 kg [facility] 04-29-2023 09:05-0400 Diastolic blood pressure 108 mm[Hg] [facility] 04-29-2023 09:05-0400 Heart rate 80 /min [facility] 04-29-2023 09:05-0400 Respiratory rate 16 /min [facility] 04-29-2023 09:05-0400 Systolic blood pressure 166 mm[Hg] [facility] 01-28-2023 10:30-0500 Body height 182.88 cm Cesar Ball Other [facility] Other 01-28-2023 10:30-0500 Body mass index (BMI) [Ratio] 36.89 kg/m2 Cesar Ball Other [facility] Other 01-28-2023 10:30-0500 Body weight 123.38 kg Cesar Ball Other [facility] Other 01-28-2023 10:30-0500 Diastolic blood pressure 89 mm[Hg] Cesar Ball Other [facility] Other 01-28-2023 10:30-0500 Respiratory rate 12 /min Cesar Ball Other [facility] Other 01-28-2023 10:30-0500 Systolic blood pressure 160 mm[Hg] Cesar Ball Other [facility] Other 01-03-2023 10:30-0500 Body height 182.88 cm Juliette Bautista Other [facility] Other 01-03-2023 10:30-0500 Body mass index (BMI) [Ratio] 36.45 kg/m2 Juliette Bautista Other [facility] Other 01-03-2023 10:30-0500 Body temperature 98.9 [degF] Juliette Bautista Other [facility] Other 01-03-2023 10:30-0500 Body weight 121.93 kg Juliette Bautista Other [facility] Other 01-03-2023 10:30-0500 Diastolic blood pressure 82 mm[Hg] Juliette Bautista Other [facility] Other 01-03-2023 10:30-0500 Respiratory rate 18 /min Juliette Bautista Other [facility] Other 01-03-2023 10:30-0500 SaO2% (BldA) [Mass fraction] 96 % Juliette Bautista Other [facility] Other 01-03-2023 10:30-0500 Systolic blood pressure 125 mm[Hg] Juliette Bautista Other [facility] Other 02-20-2022 11:00-0500 Body height 182.88 cm Cesar Ball Other [facility] Other 02-20-2022 11:00-0500 Body mass index (BMI) [Ratio] 37.43 kg/m2 Cesar Ball Other [facility] Other 02-20-2022 11:00-0500 Body weight 125.19 kg Cesar Ball Other [facility] Other 02-20-2022 11:00-0500 Diastolic blood pressure 82 mm[Hg] Cesar Ball Other [facility] Other 02-20-2022 11:00-0500 Respiratory rate 12 /min Cesar Ball Other [facility] Other 02-20-2022 11:00-0500 Systolic blood pressure 118 mm[Hg] Cesar Ball Other [facility] Other Encounters Encounter Date Encounter Type Care Provider Facility Start: 01-26-2024 End: 01-26-2024 Clinisync Result Encounter Jameson Grajeda DPM FACFAS Work Phone: [facility] External Department Unsolicited Start: 01-26-2024 End: 01-26-2024 Clinisync Result Encounter Jameson Grajeda DPM FACFAS Work Phone: [facility] External Department Unsolicited Start: 01-26-2024 End: 01-26-2024 ambulatory Jameson Grajeda Facility:[facility] Start: 01-25-2024 End: 01-25-2024 Bamboo flowsheet Jameson Justo Grajeda DPM FACFAS Work Phone: [facility] Start: 01-25-2024 End: 01-28-2024 Bamboo flowsheet Jameson Justo Grajeda DPM FACFAS Work Phone: [facility] Start: 01-25-2024 End: 01-28-2024 Clinisync Result Encounter Jameson Grajeda DPM FACFAS Work Phone: [facility] External Department Unsolicited Start: 01-25-2024 End: 01-25-2024 Office outpatient visit 25 minutes Jameson Grajeda DPM FACFAS Work Phone: [facility] Comment on above: 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) (Primary Dx); 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, right (CMS/HCC); Abscess of toe, right; Exostosis of right foot Start: 01-25-2024 End: 01-25-2024 ambulatory JAMESON GRAJEDA Not Available Start: 12-27-2023 End: 12-27-2023 Bamboo flowsheet Jameson Grajeda DPM FAC[facility]AS Work Phone: [facility] Start: 12-27-2023 End: 12-27-2023 Bamboo flowsheet Jameson Grajeda DPM FAC[facility]AS Work Phone: [facility] Start: 12-27-2023 End: 12-27-2023 Telephone encounter Jameson Coreasce DPM FACFAS Work Phone: [facility] Start: 12-27-2023 End: 12-27-2023 Office outpatient visit 25 minutes Jameson Coreasce DPM FACFAS Work Phone: [facility] Comment on above: 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) (Primary Dx); Acute osteomyelitis of ankle and foot, left (CMS/HCC); 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, right (CMS/HCC); Exostosis of right foot Start: 12-27-2023 End: 12-27-2023 ambulatory JAMESON D DOLCE Not Available Start: 12-10-2023 End: 12-10-2023 ambulatory JAMESON D DOLCE Not Available Start: 11-22-2023 End: 11-22-2023 Bamboo flowsheet Jameson D Dolce DPM FACFAS Work Phone: [facility] Start: 11-22-2023 End: 11-24-2023 Bamboo flowsheet Jameson D Dolce DPM FACFAS Work Phone: [facility] Start: 11-22-2023 End: 11-24-2023 Clinisync Result Encounter Jameson D Dolce DPM FACFAS Work Phone: [facility] External Department Unsolicited Start: 11-22-2023 End: 11-22-2023 ambulatory Jameson D Dolce Facility:[facility] Start: 11-22-2023 End: 11-22-2023 Office outpatient visit 15 minutes Jameson D Dolce DPM FACFAS Work Phone: [facility] Comment on above: Hammer toe of right foot (Primary Dx); Acute osteomyelitis of ankle and foot, left (CMS/HCC); 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, right (CMS/HCC); Type II diabetes mellitus with neurological manifestations ([facility]/HCC) Start: 11-22-2023 End: 11-22-2023 ambulatory JAMESON D DOLCE Not Available Start: 11-08-2023 End: 11-08-2023 Bamboo flowsheet Jameson D Dolce DPM FACFAS Work Phone: [facility] Start: 11-08-2023 End: 11-10-2023 Bamboo flowsheet Jameson D Dolce DPM FACFAS Work Phone: [facility] Start: 11-08-2023 End: 11-10-2023 Clinisync Result Encounter Jameson D Dolce DPM FACFAS Work Phone: [facility] External Department Unsolicited Start: 11-08-2023 End: 11-08-2023 Office outpatient visit 25 minutes Jameson Grajeda DPM FACFAS Work Phone: [facility] Comment on above: 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) (Primary Dx); Right foot pain; Abscess of toe, right; Hammer toe of right foot; Cellulitis of foot, right Start: 11-08-2023 End: 11-08-2023 ambulatory Jameson Grajeda Facility:[facility] Start: 10-26-2023 End: 10-26-2023 ambulatory Anne-Marie WardRavinder Juareznedra Facility:[facility] Start: 10-21-2023 End: 10-21-2023 ambulatory [facility] Work Phone: Start: 10-21-2023 End: 10-21-2023 Patient encounter procedure [facility] Work Phone: Start: 10-20-2023 End: 10-20-2023 Bamboo flowsheet Lexi Laguna Pocos DO Work Phone: [facility] Start: 10-20-2023 End: 10-20-2023 Bamboo flowsheet Lexi Laguna Pocos DO Work Phone: [facility] Start: 10-20-2023 End: 10-20-2023 Patient encounter procedure Lexi Laguna Pocos DO Work Phone: [facility] Comment on above: Lumbar spondylosis ( Primary Dx); Degeneration of lumbar intervertebral disc; HNP (herniated nucleus pulposus), lumbar; Primary osteoarthritis of right knee Start: 10-20-2023 End: 10-20-2023 ambulatory LEXI Laguna POCOS Not Available Start: 10-19-2023 End: 10-25-2023 Telephone encounter Alejandro Lugo PT Work Phone: [facility] Comment on above: pending MRI (He call ed noting he had pulled his back again Wednesday and pending MRI he is to put PT on-hold. He has an appt tomorrow w/ Pocos and Bill requested the MRI results sent over to him. He will call back to inform of plan given per doctor(s) benny.) Start: 10-19-2023 End: 10-19-2023 ambulatory [facility] Facility:[facility] Start: 10-15-2023 End: 10-15-2023 Bamboo flowsheet Amada Rankin UTILITY ENGINEER [facility] Start: 10-15-2023 End: 10-15-2023 Bamboo flowsheet Amada Rankin UTILITY ENGINEER [facility] Start: 10-15-2023 End: 10-15-2023 ambulatory AMADA RANKIN [facility] Comment on above: Lumbar spondylosis ( Primary Dx); Degeneration of lumbar intervertebral disc; Iliotibial band syndrome of right side Start: 10-08-2023 End: 10-08-2023 Bamboo flowsheet Luis Fernando Fahad UTILITY ENGINEER [facility] Start: 10-08-2023 End: 10-08-2023 Bamboo flowsheet Luis Fernando Fahad UTILITY ENGINEER [facility] Start: 10-08-2023 End: 10-08-2023 ambulatory LUIS FERNANDO BRODERICK [facility] Comment on above: Lumbar spondylosis ( Primary Dx); Degeneration of lumbar intervertebral disc; Iliotibial band syndrome of right side Start: 10-07-2023 End: 10-07-2023 ambulatory [facility] Work Phone: Start: 10-07-2023 End: 10-07-2023 Patient encounter procedure [facility] Work Phone: Start: 10-06-2023 End: 10-06-2023 Bamboo flowsheet Luis Fernando Fahad UTILITY ENGINEER [facility] Start: 10-06-2023 End: 10-06-2023 Bamboo flowsheet Luis Fernando Fahad UTILITY ENGINEER [facility] Start: 10-06-2023 End: 10-06-2023 ambulatory LUIS FERNANDO BRODERICK [facility] Comment on above: Lumbar spondylosis ( Primary Dx); Degeneration of lumbar intervertebral disc; Iliotibial band syndrome of right side Start: 09-29-2023 End: 09-29-2023 ambulatory ALEJANDRO LUGO Not Available Start: 09-23-2023 End: 09-23-2023 ambulatory ALEJANDRO LUGO Not Available Start: 09-16-2023 End: 09-16-2023 ambulatory Anne-Marie Garza Facility:[facility] Start: 09-15-2023 End: 09-15-2023 ambulatory AJ POCOS Not Available Start: 09-15-2023 End: 09-15-2023 ambulatory AJ POCOS Not Available Start: 09-13-2023 End: 09-13-2023 Emergency department patient visit Que Kaba Facility:[facility] Start: 09-06-2023 End: 09-06-2023 ambulatory SHAYNA TINAJERORY Facility:[facility] Start: 08-26-2023 End: 08-26-2023 ambulatory SHAYNA TINAJERORY Facility: Lane Start: 08-24-2023 End: 08-24-2023 ambulatory SHAYNA DICKEY Facility:[facility] Start: 08-11-2023 End: 08-11-2023 ambulatory SHAYNA DICKEY Facility:[facility] Start: 07-16-2023 End: 07-16-2023 ambulatory MARJORIE GARZA Facility:[facility] Start: 06-21-2023 End: 06-21-2023 ambulatory AJ POCOS Not Available Start: 06-11-2023 End: 06-11-2023 ambulatory MARJORIE Riley KAYLA Facility:[facility] Start: 05-21-2023 End: 05-21-2023 ambulatory AJ POCOS Not Available Start: 05-12-2023 End: 05-12-2023 ambulatory CESAR DAVIS Facility:[facility] Start: 04-29-2023 End: 04-29-2023 ambulatory [facility] Work Phone: Start: 04-29-2023 End: 04-29-2023 Patient encounter procedure [facility] Physician [facility] Work Phone: Start: 04-09-2023 End: 04-09-2023 ambulatory Cesar Davis Other [facility] Other Start: 04-09-2023 Telephone encounter Cesar Davis [facility] Start: 04-09-2023 Non-patient / Non-visit [facility] Physician [facility] [employer] Work Phone: Start: 03-24-2023 End: 03-24-2023 ambulatory Cesar Davis Other [facility] Other Start: 03-24-2023 Telephone encounter Cesar WILLIS [facility] Start: 01-28-2023 End: 01-28-2023 ambulatory Cesar Davis Other [facility] Other Start: 01-28-2023 Encounter for genera l adult medical examination without abnormal findings Cesar Davis [facility] Start: 01-28-2023 Periodic preventive med est patient 65yrs& older Cesar Davis [facility] Start: 01-26-2023 End: 01-26-2023 ambulatory CESAR DAVIS Facility:[facility] Start: 01-20-2023 End: 01-20-2023 ambulatory Cesar Davis Other [facility] Other Start: 01-20-2023 Telephone encounter Cesar WILLIS [facility] Start: 01-04-2023 End: 01-04-2023 ambulatory Cesar Davis Other [facility] Other Start: 01-04-2023 Office outpatient vi sit 15 minutes Cesar Davis [facility] Start: 01-03-2023 End: 01-03-2023 ambulatory Juliette Bautista Other [facility] Other Start: 01-03-2023 Office outpatient vi sit 25 minutes Juliette Bautista [facility] Start: 09-11-2022 End: 09-11-2022 ambulatory Cesar Davis Other [facility] Other Start: 09-11-2022 Telephone encounter Cesar WILLIS [facility] Start: 08-13-2022 End: 08-13-2022 ambulatory Cesar Davis Other [facility] Other Start: 08-13-2022 Telephone encounter Cesar WILLIS [facility] Start: 08-12-2022 End: 08-12-2022 ambulatory Cesar Davis Other [facility] Other Start: 08-12-2022 Telephone encounter Cesar Davis [facility] Start: 08-10-2022 End: 08-10-2022 ambulatory Cesar Davis Other [facility] Other Start: 08-10-2022 Telephone encounter Cesar Davis [facility] Start: 07-30-2022 End: 07-30-2022 ambulatory Cesar Davis Other [facility] Other Start: 07-30-2022 Telephone encounter Cesar WILLIS [facility] Start: 05-13-2022 End: 05-13-2022 ambulatory Cesar Davis Other [facility] Other Start: 05-13-2022 Telephone encounter Cesar Davis [facility] Start: 02-20-2022 End: 02-20-2022 ambulatory Cesar Davis Other [facility] Other Start: 02-20-2022 Office outpatient vi sit 25 minutes Cesar Davis [facility] Start: 12-11-[address] CESAR DAVIS Facili ty:[facility] Start: 07-31-2021 Adult health examination Sanjay Davis Other [employer] Other Procedures Date Procedure Procedure Detail Performing Clinician Start: 01-26-2024 [facility] CBC W/ AUTO DIFF M arc D Dolce DPM [facility] Work Phone: Start: 01-25-2024 [facility] C WOUND Jameson D Dol ce DPM [facility] Work Phone: Start: 11-22-2023 [facility] C WOUND Jameson D Dol ce DPM FACFAS Work Phone: Start: 11-08-2023 [facility] C WOUND Jameson D Dol ce DPM FACFAS Work Phone: Start: 11-08-2023 Radex foot complete minimum 3 views Jameson D Dolce DPM FACFAS Work Phone: Start: 10-06-2013 General examination of patient Cesar Davis Other History of thyroidectomy Kvng Davis Other Screening for malign ant neoplasm of prostate Cesar Davis Other Plan of Treatment Date Care Activity Detail Author Start: 02-07-2024 End: 02-07-2024 Patient encounter procedure 02/07/2024 8:20 AM EST Office Visit [facility] [address] [place] [phone] Jameson Grajeda, DPM FACFAS [address] [facility] [place] [place] [address] [facility] Start: 01-25-2024 End: 01-24-2025 Bacteria identified in Wound by Culture Wound culture Microbiology Routine Abscess of toe, right Expected: 01/25/2024 (Approximate), Expires: 01/24/2025 [facility] Work Phone: Comment on above: Expected: 01/25/2024 (Approximate), Expires: 01/24/2025 Start: 01-25-2024 End: 01-25-2024 Patient encounter procedure 01/25/2024 9:10 AM EST Office Visit [facility] [address] [place] [phone] Jameson Grajeda, DPM FACFAS [address] [place] [address] Arrived [facility] Comment on above: Arrived Start: 01-03-2024 End: 01-03-2024 Patient encounter procedure 01/03/2024 8:20 AM EST Office Visit [facility] [address] [place] [phone] Jameson Grajeda, DPM FACFAS [address] [facility], [place] [place] [address] [facility] Start: 12-27-2023 End: 12-27-2023 Patient encounter procedure 12/27/2023 8:10 AM EST Office Visit [facility] [address] [place] [phone] Jameson Grajeda, DPM FACFAS [address] [place] [address] Arrived [facility] Comment on above: Arrived Start: 11-22-2023 End: 11-21-2024 MR Foot - right WO contrast MR foot right wo IV contrast Imaging Routine Acute osteomyelitis of ankle and foot, left (CMS/HCC) 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, right (CMS/HCC) Expected: 11/22/2023 (Approximate), Expires: 11/21/2024 [facility] Work Phone: Comment on above: Expected: 11/22/2023 (Approximate), Expires: 11/21/2024 Start: 11-22-2023 End: 11-22-2023 Patient encounter procedure [facility] Comment on above: Arrived Start: 11-08-2023 End: 12-08-2023 Bacteria identified in Wound by Culture Wound culture Microbiology Routine Right foot pain Abscess of toe, right Cellulitis of foot, right Expected: 11/08/2023 (Approximate), Expires: 12/08/2023 [facility] Work Phone: Comment on above: Expected: 11/08/2023 (Approximate), Expires: 12/08/2023 Start: 11-08-2023 End: 11-08-2023 Patient encounter procedure 11/08/2023 8:20 AM EDT Office Visit [facility] [address] [place] [phone] Jameson Grajeda, DPM FACFAS [address] [place] [address] Arrived [facility] Comment on above: Arrived Start: 10-20-2023 End: 10-20-2023 Patient encounter procedure [facility] Comment on above: Arrived Start: 10-20-2023 End: 10-20-2023 ambulatory 10/20/2023 7:00 AM EDT Treatment [facility] [address] [place] [address] Alejandro Lugo, PT [address] [place] [address] [facility] Start: 10-15-2023 End: 10-15-2023 ambulatory 10/15/2023 7:00 AM EDT Treatment [facility] [address] [place] [address] Amada Rankin, UTILITY ENGINEER [facility] Start: 10-13-2023 End: 10-13-2023 ambulatory 10/13/2023 7:00 AM EDT Treatment [facility] [address] [facility] [address] [place] [address] Alejandro Lugo, PT [address] [facility] [address] [place] [address] [facility] Start: 10-08-2023 End: 10-08-2023 ambulatory [facility] Comment on above: Arrived Bacteria identified in Wound by Culture Wound culture Microbiology Routine 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 purified surface antigen) Cesar Davis Other [facility] Other 11-04-2021 influenza virus vaccine, unspecified formulation [facility] 11-04-2021 influenza, high dose seasonal, preservative-free Cesar Davis Other [facility] Other 12-17-2020 COVID-19 Vaccine Terrence - Documentation Purposes Only Cesar Davis Other [facility] 04-19-2020 COVID-19 Vaccine Terrence - Documentation Purposes Only Cesar Davis Other [facility] 11-03-2019 influenza, injectabl e, quadrivalent, preservative free Cesar Davis Other [facility] 2012 tetanus and diphther ia toxoids, adsorbed, preservative free, for adult use (5 Lf of tetanus toxoid and 2 Lf of diphtheria toxoid) Cesar Davis Other [facility] Payers Date Payer Category Payer Private Health Insurance [employer] [id number] 2023 Unknown [employer] [id number] 2023-Present [address] [place] [address] [id number]. [id number] 2023 Unknown [id number] 2021 Unknown [id number] 2.16.840.1.166346.19 2020 Medicare [id number]. 1.13.693.2. [id number] 2020 Medicare [id number] 2.16.840.1.338531.19 1959 Self-pay [id number] 1955 Unknown [id number] 2.16.840.1.281224.3.579.2. 593 1955 Unknown [id number] 2.16.840.1.489568.3.579.2. 727 1955 Unknown [id number] 2.16.840.1.100401.3.579.2. 727 1955 Unknown [id number] 2.16.840.1.034385.3.579.2. 727 1955 Unknown [id number] 2.16.840.1.717494.3.579.2. 727 1955 Unknown [id number] 2.16.840.1.830721.3.579.2. 727 1955 Unknown [id number] 2.16.840.1.925774.3.579.2. 727 1955 Unknown [id number] 2.16.840.1.363559.3.579.2. 727 1955 Unknown [id number] 2.16.840.1.031514.3.579.2. 727 1955 Unknown [id number] 2.16.840.1.121010.3.579.2. 727 1955 Unknown [id number] 2.16.840.1.315793.3.579.2. 727 1955 Unknown [id number] 2.16.840.1.006102.3.579.2. 727 1955 Unknown [id number] 2.16.840.1.914150.3.579.2. 727 1955 Unknown [id number] 2.16.840.1.364900.3.579.2. 72 1955 Unknown [id number] 2.16.840.1.992992.3.579.2. 727 1955 Unknown [id number] 2.16.840.1.652445.3.579.2. 727 1955 Unknown [id number] 2.16.840.1.807899.3.579.2. 1259 1955 Unknown [id number] 2.16.840.1.093124.3.579.2. 1259 1955 Unknown [id number] 2.16.840.1.007578.3.579.2. 1259 1955 Unknown [id number] 2.16.840.1.432219.3.579.2. 1259 1955 Unknown [id number] 2.16.840.1.951252.3.579.2. 1259 1955 Unknown [id number] 2.16.840.1.094580.3.579.2. 1259 1955 Unknown [id number] 2.16.840.1.295385.3.579.2. 1259 1955 Unknown [id number] 2.16.840.1.153893.3.579.2. 1259 1955 Unknown [id number] 2.16.840.1.871374.3.579.2. 1259 1955 Unknown [id number] 2.16.840.1.159174.3.579.2. 1259 1955 Unknown [id number] 2.16.840.1.971872.3.579.2. 1259 1955 Unknown [id number] 2.16.840.1.592642.3.579.2. 1259 1955 Unknown [id number] 2.16.840.1.612702.3.579.2. 1259 1955 Unknown [id number] 2.16.840.1.812815.3.579.2. 1259 1955 Unknown [id number] 2.16.840.1.531098.3.579.2. 1259 1955 Unknown [id number] 2.16.840.1.973607.3.579.2. 1259 1955 Unknown [id number] 2.16.840.1.134193.3.579.2. 1259 1955 Unknown [id number] 2.16.840.1.907293.3.579.2. 727 1955 Unknown [id number] 2.16.840.1.187629.3.579.2. 727 Social History Date Type Detail Facility Start: 10-20-2023 End: 11-08-2023 Sex Assigned At [facility] Other Start: 07-17-2022 End: 04-28-2023 Tobacco smoking status NHIS Never smoked tobacco (finding) [facility] Start: 1955 Sex Assigned At Male F [facility] [place] Start: 07-17-2022 Tobacco use and exposure Smokeless tobacco non-user [facility] Start: 10-20-2023 End: 11-08-2023 Alcoholic beverage intake Ex-drinker (finding) [facility] Start: 10-20-2023 End: 11-08-2023 History of Social function [facility] Start: 10-18-2022 Alcohol Comment Caffeine: 1-2 cups/d ay [facility] Start: 07-11-2022 Gender identity Identifies as male gender (finding) [facility] Start: 07-11-2022 Sexual orientation Heterosexual (fin ding) [facility] NEGATED: Highlighted rowStart: NINF History of tobacco use Passive smoker [facility] Clinical Notes 02-20-2022 to 01-28-2024 RAFITA Ortega - 01/25/2024 9:10 AM ESTTelephone Encounter - RAFITA Ortega - 12/27/2023 8:22 AM ESTTelephone Encounter - Jameson Grajeda DPM [facility] - 12/27/2023 8:22 AM EST Note Date & Type Note Facility 01-28-2024 Note Microbiology PROCEDURE: Wound Culture [R1] SOURCE: Abscess BODY SITE: Toe COLLECTED DATE/TIME: 01/25/2024 08:30 EST RECEIVED DATE/TIME: 01/25/2024 20:38 EST START DATE/TIME: 01/25/2024 20:38 EST FREE TEXT SOURCE: Right toe Tanya ELLER, Jameson Grajeda DPM, Jameson Kemp FINAL REPORTS Final Report [] Verified Date/Time: 01/28/2024 13:13 EST 2+ Gram Positive Rods resembling diphtheroids STAINS Gram Stain Report [] Verified Date/Time: 01/26/2024 12:46 EST Occasional White Blood Cells Occasional Gram Positive Rods Performing Locations R1: This test was performed at: [facility], [address] [place] [address], [id number] , , [facility] Comment on above: Performed By: #### [id number] #### [facility] [address] [place] [id number] 01-25-2024 History of Present illness Narrative Images from the original note were not included. Patient: Nikolas Calvo : 1955 PCP: Cesar Davis MD SUBJECTIVE This is a 68 y.o. male that presents today for a chief complaint of follow up of a red hot swollen right great toe at the level of the IPJ. He states it 1st developed he has had an ulcerative for some time. Patient is diabetic sugars have been running relatively under control States the areas infected he has not taking any antibiotics in the past. May have occurred secondary to shoe gear rubbing. Patient's hemoglobin A1c was 7 according to the patient denies fever chills nausea vomiting he has not been wearing his surgical shoe presented in a regular shoe today wound appears to have worsened. Recently underwent an MRI which revealed: MR foot right wo IV contrast Narrative: EXAM: MR FOOT RIGHT WO IV CONTRAST HISTORY: Osteomyelitis of the great toe. First toe ulcer. COMPARISON : Foot radiograph November 08, 2023 TECHNIQUE: Multiplanar multisequence MRI of the foot was performed without contrast. FINDINGS: No osteomyelitis noted The examination is degraded by motion artifact. No definitive signal abnormality to suggest osteomyelitis. Degenerative changes are identified at the first metatarsophalangeal joint and interphalangeal joint of the great toe. Mild subcutaneous soft tissue edema of the great toe without loculated fluid collection to suggest abscess. Flexion extensor tendons appear intact. No soft tissue mass. Impression: No definitive findings of osteomyelitis. Degenerative changes of the first metatarsophalangeal joint and first interphalangeal joint. ELECTRONICALLY SIGNED BY: Marjorie Kemp DO Allergies: Allergies Allergen Reactions Sulfa Antibiotics Unknown Past Medical History: Past Medical History: Diagnosis Date Arthritis Diabetes (CMS/HCC) Hypertension (CMS/HCC) Thyroid activity decreased (CMS/HCC) Medications: Current Outpatient Medications: acetaminophen (Tylenol 8 Hour) 650 MG ER tablet, Take 650 mg by mouth every 8 (eight) hours if needed for mild pain Do not crush, chew, or split., Disp: , Rfl: amLODIPine (Norvasc) 5 MG tablet, , Disp: , Rfl: atorvastatin (Lipitor) 20 MG tablet, , Disp: , Rfl: HYDROcodone-acetaminophen ([place]) 5-325 MG tablet, , Disp: , Rfl: hydroxychloroquine (Plaquenil) 200 MG tablet, TAKE ONE TABLET BY MOUTH TWICE A DAY WITH FOOD -YEARLY EYE EXAM, Disp: , Rfl: Januvia 50 MG tablet, Take 50 mg by mouth Daily as directed, Disp: , Rfl: levothyroxine (Synthroid, Levoxyl) 175 MCG tablet, , Disp: , Rfl: losartan (Cozaar) 50 MG tablet, , Disp: , Rfl: metFORMIN (Glucophage) 1000 MG tablet, , Disp: , Rfl: tamsulosin (Flomax) 0.4 MG 24 hr capsule, , Disp: , Rfl: ROS: Constitutional: Denies fever, chills, nausea, vomiting GI: Denies abdominal pain, cramping, loose stool, gastric ulcers Musculoskeletal: Denies low back pain, knee pain, systemic arthritis Neurologic: Denies burning, tingling, transient paralysis OBJECTIVE Physical examination: Vascular: Dorsalis pedis posterior tibial pulses are palpable bilateral, no edema noted Neuro: [place] 5.07 monofilament intact, vibratory sensation intact Derm: All hair growth noted skin temperature is warm to cool knees to toes DIPJ of the right great toe is minimally red not hot mildly swollen without abscess noted at the IPJ. Wounds debrided to level of muscle fascia via sharp debridement. Did probe to the joint capsule.Cultures and sensitivities were taken. The ulceration measures 1 cm x 1 cm x 6 mm deep rim of hyperkeratosis noted. 80 percent granular 20 percent fibrotic. Musculoskeletal: Muscle strength +5/5 all intrinsic and extrinsic muscles tested Severe contracture of the IPJ of the right great toe with exostosis noted at the IPJ of the great toe ASSESSMENT 1. 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, right (CMS/HCC) 2. Abscess of toe, right PLAN Educated the patient on the MRI findings the erythema has improved significantly. No osteomyelitis was noted at the PIPJ of the great toe however it does have a large exostosis which is creating the ulceration. I discussed excision of the exostosis with complex wound closure of the ulceration. Concern is the patient works long hours in his able to do that until January. I did recommended continue offloading of the great toe with his surgical boot which he is not compliant in wearing. Wound was debrided to level of muscle fascia via sharp debridement compression was utilized for hemostasis. he is to continue with topical antibiotics. The erythema has improved oral antibiotics not necessary at this point it has improved. Planned procedure will be removal of exostosis great toe with complex wound closure right foot. Consent forms were signed today. Cultures and sensitivities were taken today started the patient empirically on doxycycline 100 mg b.I.d. follow up 2 weeks. RAFITA Ortega documented in this encounter [facility] 12-27-2023 Telephone encounter Note Phone #: [phone] Insurance: Payor: MEDICARE / Plan: MEDICARE PART B / Product Type: Medicare / Preferred Date/Time: First Available [] BENNY [] Patient Name: Nikolas Calvo : 1955 Surgeon: Dr. Jameson Grajeda [] Dr. Darrell Grajeda [] Location: [facility] [] [facility] [] [facility] [] Procedure(s): Excision of the exostosis right great toe, complex wound closure CPT Code(s): 54329, 20103 Diagnosis: ICD-10-CM 1. Type II diabetes mellitus with neurological manifestations (CMS/HCC) E11.49 2. Exostosis of right foot M89.8X7 3. 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, right (CMS/HCC) L97.513 Procedure Time: 30 min [] 1 Hour [x] 1.5 Hour [] 2 Hours [] Anesthesia: MAC [x] General [] Local [] Popliteal Block [] Position: Supine [] Prone [] Lateral [] Special Requests: C-arm [x] Pulse Lavage [] VersaJet [] Special Equipment: Arthrex plate /screws [] Internal brace [] Arthrex FiberTak [] Biopro Staple [] Biopro Howard Impant [] Other [] Pre-op Orders: Abx 30 min Prior: 2g Ancef [x] Clindamycin 600mg [] Vancomycin 1 g [] Post-op WB: Partial WB [x] Non-WB [] Crutches [] Walker [] Knee Scooter [] , PCP Clearance: Cesar Davis MD Other Clearance: Cardiology [] Rheumatology [] Other [] [facility] 12-27-2023 Miscellaneous Notes Phone #: [phone] Insurance: Payor: MEDICARE / Plan: MEDICARE PART B / Product Type: Medicare / Preferred Date/Time: First Available [] BENNY [] Patient Name: Nikolas Calvo : 1955 Surgeon: Dr. Jameson Grajeda [] Dr. Darrell Grajeda [] Location: [facility] [] [facility] [] [facility] [] Procedure(s): Excision of the exostosis right great toe, complex wound closure CPT Code(s): 60476, 28661 Diagnosis: ICD-10-CM 1. Type II diabetes mellitus with neurological manifestations (CMS/HCC) E11.49 2. Exostosis of right foot M89.8X7 3. 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, right (CMS/HCC) L97.513 Procedure Time: 30 min [] 1 Hour [x] 1.5 Hour [] 2 Hours [] Anesthesia: MAC [x] General [] Local [] Popliteal Block [] Position: Supine [] Prone [] Lateral [] Special Requests: C-arm [x] Pulse Lavage [] VersaJet [] Special Equipment: Arthrex plate /screws [] Internal brace [] Arthrex FiberTak [] Biopro Staple [] Biopro Howard Impant [] Other [] Pre-op Orders: Abx 30 min Prior: 2g Ancef [x] Clindamycin 600mg [] Vancomycin 1 g [] Post-op WB: Partial WB [x] Non-WB [] Crutches [] Walker [] Knee Scooter [] , PCP Clearance: Cesar Davis MD Other Clearance: Cardiology [] Rheumatology [] Other [] documented in this encounter [facility] 12-27-2023 History of Present illness Narrative Images from the original note were not included. Patient: Nikolas Calvo : 1955 PCP: Cesar Davis MD SUBJECTIVE This is a 68 y.o. male that presents today for a chief complaint of follow up of a red hot swollen right great toe at the level of the IPJ. He states it 1st developed he has had an ulcerative for some time. Patient is diabetic sugars have been running relatively under control States the areas infected he has not taking any antibiotics in the past. May have occurred secondary to shoe gear rubbing. Patient's hemoglobin A1c was 7 according to the patient denies fever chills nausea vomiting he has not been wearing his surgical shoe presented in a regular shoe today wound appears to have worsened. Recently underwent an MRI which revealed: MR foot right wo IV contrast Narrative: EXAM: MR FOOT RIGHT WO IV CONTRAST HISTORY: Osteomyelitis of the great toe. First toe ulcer. COMPARISON : Foot radiograph November 08, 2023 TECHNIQUE: Multiplanar multisequence MRI of the foot was performed without contrast. FINDINGS: No osteomyelitis noted The examination is degraded by motion artifact. No definitive signal abnormality to suggest osteomyelitis. Degenerative changes are identified at the first metatarsophalangeal joint and interphalangeal joint of the great toe. Mild subcutaneous soft tissue edema of the great toe without loculated fluid collection to suggest abscess. Flexion extensor tendons appear intact. No soft tissue mass. Impression: No definitive findings of osteomyelitis. Degenerative changes of the first metatarsophalangeal joint and first interphalangeal joint. ELECTRONICALLY SIGNED BY: Marjorie Kemp DO Allergies: Allergies Allergen Reactions Sulfa Antibiotics Unknown Past Medical History: Past Medical History: Diagnosis Date Arthritis Diabetes (CMS/HCC) Hypertension (CMS/HCC) Thyroid activity decreased (CMS/HCC) Medications: Current Outpatient Medications: acetaminophen (Tylenol 8 Hour) 650 MG ER tablet, Take 650 mg by mouth every 8 (eight) hours if needed for mild pain Do not crush, chew, or split., Disp: , Rfl: amLODIPine (Norvasc) 5 MG tablet, , Disp: , Rfl: atorvastatin (Lipitor) 20 MG tablet, , Disp: , Rfl: HYDROcodone-acetaminophen ([place]) 5-325 MG tablet, , Disp: , Rfl: hydroxychloroquine (Plaquenil) 200 MG tablet, TAKE ONE TABLET BY MOUTH TWICE A DAY WITH FOOD -YEARLY EYE EXAM, Disp: , Rfl: Januvia 50 MG tablet, Take 50 mg by mouth Daily as directed, Disp: , Rfl: levothyroxine (Synthroid, Levoxyl) 175 MCG tablet, , Disp: , Rfl: losartan (Cozaar) 50 MG tablet, , Disp: , Rfl: metFORMIN (Glucophage) 1000 MG tablet, , Disp: , Rfl: tamsulosin (Flomax) 0.4 MG 24 hr capsule, , Disp: , Rfl: ROS: Constitutional: Denies fever, chills, nausea, vomiting GI: Denies abdominal pain, cramping, loose stool, gastric ulcers Musculoskeletal: Denies low back pain, knee pain, systemic arthritis Neurologic: Denies burning, tingling, transient paralysis OBJECTIVE Physical examination: Vascular: Dorsalis pedis posterior tibial pulses are palpable bilateral, no edema noted Neuro: [place] 5.07 monofilament intact, vibratory sensation intact Derm: All hair growth noted skin temperature is warm to cool knees to toes DIPJ of the right great toe is minimally red not hot mildly swollen without abscess noted at the IPJ. Wounds debrided to level of muscle fascia via sharp debridement. Did probe to the joint capsule.Cultures and sensitivities were taken. The ulceration measures 1 cm x 1 cm x 6 mm deep rim of hyperkeratosis noted. 80 percent granular 20 percent fibrotic. Musculoskeletal: Muscle strength +5/5 all intrinsic and extrinsic muscles tested Severe contracture of the IPJ of the right great toe with exostosis noted at the IPJ of the great toe ASSESSMENT 1. Acute osteomyelitis of ankle and foot, left ([facility]/HCC) 2. 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 Type II diabetes mellitus with neurological manifestations (CMS/HCC) 4. Exostosis of right foot PLAN Educated the patient on the MRI findings the erythema has improved significantly. No osteomyelitis was noted at the PIPJ of the great toe however it does have a large exostosis which is creating the ulceration. I discussed excision of the exostosis with complex wound closure of the ulceration. Concern is the patient works long hours in his able to do that until January. I did recommended continue offloading of the great toe with his surgical boot which he is not compliant in wearing. Wound was debrided to level of muscle fascia via sharp debridement compression was utilized for hemostasis. he is to continue with topical antibiotics. The erythema has improved oral antibiotics not necessary at this point it has improved. Planned procedure will be removal of exostosis great toe with complex wound closure right foot. RAFITA Ortega documented in this encounter [facility] 11-24-2023 Note Microbiology PROCEDURE: Wound Culture [R1] SOURCE: Abscess BODY SITE: Toe COLLECTED DATE/TIME: 11/22/2023 09:15 EDT RECEIVED DATE/TIME: 11/22/2023 13:08 EDT START DATE/TIME: 11/22/2023 13:08 EDT FREE TEXT SOURCE: Right great toe Jameson Grajeda DPM, DPM, Jameson Kemp FINAL REPORTS Final Report [] Verified Date/Time: 11/24/2023 13:33 EDT 1+ Pseudomonas aeruginosa Scant growth of Staphylococcus species coagulase negative STAINS Gram Stain Report [] Verified Date/Time: 11/23/2023 12:10 EDT Occasional White Blood Cells Occasional Gram Negative Rods SUSCEPTIBILITY RESULTS __ LEGEND: S=Susceptible, N/R=Not Reported, Blank=Data not available, or drug not advisable or tested, I=Intermediate, ESBL=Extended spectrum beta-lactamase, R=Resistant, TFG=Thymidine-dependent strain, YESSENIA=Beta-lactamase positive, DAVE=mcg/m;(mg/L), S*=Predicted susceptible interp, R*=Predicted resistant interp PA Antibiotic DAVE Dilutn DAVE Interp Aztreonam <=4 S Cefepime <=2 S Ceftazidime <=1 S Ceftazidime/ <=8 S Avibactam Ciprofloxacin <=0.25 S Gentamicin 4 S Levofloxacin <=0.5 S Meropenem <=1 S Piperacillin/ <=8 S Tazobactam Tobramycin <=2 S Performing Locations R1: This test was performed at: [facility], [address] [place] [address], [facility]- , , [facility] Comment on above: Performed By: #### [id number] #### [facility] [address] [place] [address] 11-22-2023 History of Present illness Narrative Images from the original note were not included. Patient: Nikolas Calvo : 1955 PCP: Cesar Davis MD SUBJECTIVE This is a 67 y.o. male that presents today for a chief complaint of red hot swollen right great toe at the level of the IPJ. He states it 1st developed 4 days ago but has been ulcerative for some time. States the areas infected he has not taking any antibiotics in the past. May have occurred secondary to shoe gear rubbing. Patient's hemoglobin A1c was 7 according to the patient denies fever chills nausea vomiting he has not been wearing his surgical shoe presented in a regular shoe today wound appears to have worsened. Allergies: Allergies Allergen Reactions Sulfa Antibiotics Unknown Past Medical History: Past Medical History: Diagnosis Date Arthritis Diabetes (CMS/HCC) Hypertension (CMS/HCC) Thyroid activity decreased (CMS/HCC) Medications: Current Outpatient Medications: acetaminophen (Tylenol 8 Hour) 650 MG ER tablet, Take 650 mg by mouth every 8 (eight) hours if needed for mild pain Do not crush, chew, or split., Disp: , Rfl: amLODIPine (Norvasc) 5 MG tablet, , Disp: , Rfl: atorvastatin (Lipitor) 20 MG tablet, , Disp: , Rfl: clindamycin (Cleocin) 300 MG capsule, Take 1 capsule (300 mg) by mouth in the morning and 1 capsule (300 mg) in the evening and 1 capsule (300 mg) before bedtime. Do all this for 10 days. TAKE 1 PILL P.O. T.I.D. FOR 10 DAYS., Disp: 30 capsule, Rfl: 0 HYDROcodone-acetaminophen ([place]) 5-325 MG tablet, , Disp: , Rfl: hydroxychloroquine (Plaquenil) 200 MG tablet, TAKE ONE TABLET BY MOUTH TWICE A DAY WITH FOOD -YEARLY EYE EXAM, Disp: , Rfl: Januvia 50 MG tablet, Take 50 mg by mouth Daily as directed, Disp: , Rfl: levothyroxine (Synthroid, Levoxyl) 175 MCG tablet, , Disp: , Rfl: losartan (Cozaar) 50 MG tablet, , Disp: , Rfl: meloxicam (Mobic) 15 MG tablet, Take 1 tablet (15 mg) by mouth Daily, Disp: 30 tablet, Rfl: 2 metFORMIN (Glucophage) 1000 MG tablet, , Disp: , Rfl: mupirocin (Bactroban) 2 % ointment, Apply 1 application topically in the morning and 1 application before bedtime. Do all this for 14 days., Disp: 30 g, Rfl: 1 tamsulosin (Flomax) 0.4 MG 24 hr capsule, , Disp: , Rfl: ROS: Constitutional: Denies fever, chills, nausea, vomiting GI: Denies abdominal pain, cramping, loose stool, gastric ulcers Musculoskeletal: Denies low back pain, knee pain, systemic arthritis Neurologic: Denies burning, tingling, transient paralysis OBJECTIVE Physical examination: Vascular: Dorsalis pedis posterior tibial pulses are palpable bilateral, no edema noted Neuro: [place] 5.07 monofilament intact, vibratory sensation intact Derm: All hair growth noted skin temperature is warm to cool knees to toes DIPJ of the right great toe is red hot and swollen with an abscess noted at the IPJ. Wounds debrided to level of muscle fascia via sharp debridement. Did probe to the joint capsule.Cultures and sensitivities were taken. Musculoskeletal: Muscle strength +5/5 all intrinsic and extrinsic muscles tested Severe contracture of the IPJ of the right great toe ASSESSMENT 1. Acute osteomyelitis of ankle and foot, left (CMS/HCC) 2. 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 Type II diabetes mellitus with neurological manifestations (CMS/HCC) PLAN I educated the patient on the infection and deformity of the right great toe. No fractures or dislocations seen no gas noted Today I debrided the wound to level muscle fascia. I recommended the patient undergo an MRI to rule out osteomyelitis discussed surgical intervention with the patient including correction of the digital deformity in the exostosis in that region. Follow up with me after the MRI and instructed him on the importance of utilizing a surgical shoe to help offload the area. He is to change the dressing topical antibiotics daily. RAFITA Ortega documented in this encounter [facility] 11-10-2023 Note Microbiology PROCEDURE: Wound Culture [R1] SOURCE: Abscess BODY SITE: Toe COLLECTED DATE/TIME: 11/08/2023 09:00 EDT RECEIVED DATE/TIME: 11/08/2023 14:35 EDT START DATE/TIME: 11/08/2023 14:35 EDT FREE TEXT SOURCE: Right toe Tanya ELLER, Jameson Grajeda DPM, Jameson Kemp FINAL REPORTS Final Report [] Verified Date/Time: 11/10/2023 11:21 EDT 2+ Streptococcus agalactiae (Group B) Presumptive isolated. Scant growth of Normal skin raisa isolated STAINS Gram Stain Report [] Verified Date/Time: 11/09/2023 11:15 EDT Occasional White Blood Cells Occasional Gram Positive Cocci SUSCEPTIBILITY RESULTS __ LEGEND: S=Susceptible, N/R=Not Reported, Blank=Data not available, or drug not advisable or tested, I=Intermediate, ESBL=Extended spectrum beta-lactamase, R=Resistant, TFG=Thymidine-dependent strain, YESSENIA=Beta-lactamase positive, DAVE=mcg/m;(mg/L), S*=Predicted susceptible interp, R*=Predicted resistant interp Strep B Antibiotic DAVE Dilutn DAVE Interp Ampicillin 0.12 S Azithromycin <=0.25 S Cefepime <=0.25 S Ceftriaxone <=0.25 S Clindamycin <=0.06 S Erythromycin <=0.06 S Levofloxacin 0.5 S Penicillin 0.06 S Tetracycline >4 R Vancomycin 0.5 S Performing Locations R1: This test was performed at: [facility], [address] [place] [address], [id number] , , [facility] Comment on above: Performed By: #### [id number] #### [facility] [address] [place] [id number] 11-08-2023 History of Present illness Narrative Images from the original note were not included. Patient: Nikolas Calvo : 1955 PCP: Cesar Davis MD SUBJECTIVE This is a 67 y.o. male that presents today for a chief complaint of red hot swollen right great toe at the level of the IPJ. He states it 1st developed 4 days ago but has been ulcerative for some time. States the areas infected he has not taking any antibiotics in the past. May have occurred secondary to shoe gear rubbing. Patient's hemoglobin A1c was 7 according to the patient denies fever chills nausea vomiting Allergies: Allergies Allergen Reactions Sulfa Antibiotics Unknown Past Medical History: Past Medical History: Diagnosis Date Arthritis Diabetes ([facility]) Hypertension ([facility]) Thyroid activity decreased ([facility]) Medications: Current Outpatient Medications: acetaminophen (Tylenol 8 Hour) 650 MG ER tablet, Take 650 mg by mouth every 8 (eight) hours if needed for mild pain Do not crush, chew, or split., Disp: , Rfl: amLODIPine (Norvasc) 5 MG tablet, , Disp: , Rfl: amoxicillin-clavulanate (Augmentin) 875-125 MG tablet, Take 1 tablet (875 mg) by mouth in the morning and 1 tablet (875 mg) in the evening. Take after meals. Do all this for 10 days. Take 1 pill p.o. b.I.d. for 10 days., Disp: 20 tablet, Rfl: 0 atorvastatin (Lipitor) 20 MG tablet, , Disp: , Rfl: HYDROcodone-acetaminophen ([place]) 5-325 MG tablet, , Disp: , Rfl: hydroxychloroquine (Plaquenil) 200 MG tablet, TAKE ONE TABLET BY MOUTH TWICE A DAY WITH FOOD -YEARLY EYE EXAM, Disp: , Rfl: Januvia 50 MG tablet, Take 50 mg by mouth Daily as directed, Disp: , Rfl: levothyroxine (Synthroid, Levoxyl) 175 MCG tablet, , Disp: , Rfl: losartan (Cozaar) 50 MG tablet, , Disp: , Rfl: meloxicam (Mobic) 15 MG tablet, Take 1 tablet (15 mg) by mouth Daily, Disp: 30 tablet, Rfl: 2 metFORMIN (Glucophage) 1000 MG tablet, , Disp: , Rfl: mupirocin (Bactroban) 2 % ointment, Apply 1 application topically in the morning and 1 application before bedtime. Do all this for 14 days., Disp: 30 g, Rfl: 1 tamsulosin (Flomax) 0.4 MG 24 hr capsule, , Disp: , Rfl: ROS: Constitutional: Denies fever, chills, nausea, vomiting GI: Denies abdominal pain, cramping, loose stool, gastric ulcers Musculoskeletal: Denies low back pain, knee pain, systemic arthritis Neurologic: Denies burning, tingling, transient paralysis OBJECTIVE Physical examination: Vascular: Dorsalis pedis posterior tibial pulses are palpable bilateral, no edema noted Neuro: [place] 5.07 monofilament intact, vibratory sensation intact Derm: All hair growth noted skin temperature is warm to cool knees to toes DIPJ of the right great toe is red hot and swollen with an abscess noted at the IPJ. Upon incision and drainage mild purulence was noted exuding from the area. Wounds open to level of muscle tendon. Cultures and sensitivities were taken. Musculoskeletal: Muscle strength +5/5 all intrinsic and extrinsic muscles tested Severe contracture of the IPJ of the right great toe XRAY: Three views were taken today AP/MO/LAT foot: No fractures or dislocations seen no gas noted in the soft tissue no signs of osteomyelitis. US: ASSESSMENT 1. Type II diabetes mellitus with neurological manifestations (CMS/HCC) 2. Right foot pain 3. Abscess of toe, right 4. Hammer toe of right foot 5. Cellulitis of foot, right PLAN I educated the patient on the infection and deformity of the right great toe. Radiographs were taken today which revealed: AP/MO/LAT foot: No fractures or dislocations seen no gas noted in the soft tissue no signs of osteomyelitis. Today I performed an incision and drainage of the right great toe IPJ abscess. Cultures and sensitivities were taken. Lavaged the area with normal sterile saline applied Silvadene and a dry sterile dressing to the area dispensed a surgical shoe. Patient was instructed to change the dressing daily with topical Bactroban to be applied. We will discuss the deformity of the great toe joint on the next visit once the infection has resolved. Patient was started empirically on Augmentin 875 b.I.d. for 10 days RAFITA Ortega documented in this encounter [facility] 10-20-2023 History of Present illness Narrative Images from the original note were not included. Nikolas Calvo is a 67 y.o. male presents with chief complaint of follow up low back, iliotibial band, right knee osteoarthritis. HPI: Nikolas returns here today for repeat evaluation of all the above. He continues to struggle with pain and difficulty. He ended up going and getting an MRI per Dr. Davis. He is here requesting review of the MRI. It was done yesterday. He states that things were getting better with therapy then he has days where he does have rather significant or more involved pain. This is frustrating for him. SUBJECTIVE: MEDICATIONS: Current Outpatient Medications Medication Instructions acetaminophen (TYLENOL 8 HOUR) 650 mg, Oral, Every 8 hours PRN, Do not crush, chew, or split. amLODIPine (Norvasc) 5 MG tablet atorvastatin (Lipitor) 20 MG tablet HYDROcodone-acetaminophen ([place]) 5-325 MG tablet No dose, route, or frequency recorded. hydroxychloroquine (Plaquenil) 200 MG tablet TAKE ONE TABLET BY MOUTH TWICE A DAY WITH FOOD -YEARLY EYE EXAM Januvia 50 mg, Oral, Daily, as directed levothyroxine (Synthroid, Levoxyl) 175 MCG tablet losartan (Cozaar) 50 MG tablet meloxicam (MOBIC) 15 mg, Oral, Daily metFORMIN (Glucophage) 1000 MG tablet tamsulosin (Flomax) 0.4 MG 24 hr capsule ALLERGIES: Allergies Allergen Reactions Sulfa Antibiotics Unknown SURGICAL HISTORY: Past Surgical History: Procedure Laterality Date FOOT SURGERY 1974 [facility] LITHOTRIPSY 10/2018 (kidney stones)-[facility]-Dr. Delano Gabriel ORIF ANKLE FRACTURE Left 2019 [facility] [place] UPPER ARM/ELBOW SURGERY UNLISTED [facility] FAMILY HISTORY: Family History Problem Relation Name Age of Onset Cancer Mother Heart disease Father Stroke Father No Known Problems Sister No Known Problems Brother No Known Problems Mother's Sister No Known Problems Mother's Brother No Known Problems Father's Sister No Known Problems Father's Brother No Known Problems Maternal Grandmother No Known Problems Maternal Grandfather No Known Problems Paternal Grandmother No Known Problems Paternal Grandfather SOCIAL HISTORY: Social History Tobacco Use Smoking status: Never Passive exposure: Never Smokeless tobacco: Never Vaping Use Vaping status: Never Used Substance Use Topics Alcohol use: Not Currently Comment: Caffeine: 1-2 cups/day Drug use: Never Depression: Not on file REVIEW OF SYMPTOMS: The review of systems, history and current medications list are all reviewed today. OBJECTIVE: Visit Vitals Ht 6' 2 Wt 270 lb BMI 34.67 kg/m Smoking Status Never BSA 2.52 m Physical Exam His orthopedic exam here today shows no real changes. He does have some pain with bench testing, more on the right than the left. Patellar and Achilles deep tendon reflexes are 1/4 and symmetric. His gait is a little bit slow based. He does have a patellar grind on the right, negative on the left. Varus and valgus stress testing is stable. No real effusion of the knees bilaterally. X-rays MRI is reviewed from [facility] 10-19-2023 lumbar spine and does show multilevel disc degeneration, bulging with what appears to be an L2-3 herniated disc with extrusion. There is no evidence of fracture. No invasive marrow change. ASSESSMENT AND PLAN: Assessment/Plan Lumbar degenerative disc and degenerative joint disease with right lower extremity radiculopathy, herniated nucleus pulposus. Right knee osteoarthritis. The findings are discussed. The decision was made that the physical therapy is no longer helping and MRI is ordered. We now have the result of the MRI. Of note, the MRI has not been read from radiology and as such, a checks and balances cannot exist here. We will follow up on that MRI but he does have multilevel disc degeneration with an extruded disc noted. With this, we would refer for spine surgery. He does appear a bit taken back about the surgical discussion. We did explain that we do use MRI to guide treatment and now we do have this information and the guidance would be to get an opinion with spine surgery. We will go ahead and get this underway. We did explain that we can talk about conservative care of the knee at any point. We will await the surgical recommendation on the back. He does question his job and lifting and carrying. 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 We would recommend against this not only for the risk of injury but for prevention of further progression of his disease. He does voice understanding of this. We will see him back here only on an as necessary basis. Follow up letter sent to Dr. Davis. documented in this encounter [facility] 09-16-2023 Note Patient Education Nephrology Lithotripsy, Care After This sheet gives you information about how to care for yourself after your procedure. Your health care provider may also give you more specific instructions. If you have problems or questions, contact your health care provider. What can I expect after the procedure? After the procedure, it is common to have: ? Some blood in your urine. This should only last for a few days. ? Soreness in your back, sides, or upper abdomen for a few days. ? Blotches or bruises on the area where the shock wave entered the skin. ? Pain, discomfort, or nausea when pieces (fragments) of the kidney stone move through the tube that carries urine from the kidney to the bladder (ureter). Stone fragments may pass soon after the procedure, but they may continue to pass for up to 4?8 weeks. ? If you have severe pain or nausea, contact your health care provider. This may be caused by a large stone that was not broken up, and this may mean that you need more treatment. ? Some pain or discomfort during urination. ? Some pain or discomfort in the lower abdomen or (in men) at the base of the penis. Follow these instructions at home: Medicines ? Take toiv-oia-ezuseln and prescription medicines only as told by your health care provider. ? If you were prescribed an antibiotic medicine, take it as told by your health care provider. Do not stop taking the antibiotic even if you start to feel better. ? Ask your health care provider if the medicine prescribed to you requires you to avoid driving or using machinery. Eating and drinking ? Drink enough fluid to keep your urine pale yellow. This helps any remaining pieces of the stone to pass. It can also help prevent new stones from forming. ? Eat plenty of fresh fruits and vegetables. ? Follow instructions from your health care provider about eating or drinking restrictions. You may be instructed to: ? Reduce how much salt (sodium) you eat or drink. Check ingredients and nutrition facts on packaged foods and beverages to see how much sodium they contain. ? Reduce how much meat you eat. ? Eat the recommended amount of calcium for your age and gender. Ask your health care provider how much calcium you should have. General instructions ? Get plenty of rest. ? Return to your normal activities as told by your health care provider. Ask your health care provider what activities are safe for you. Most people can resume normal activities 1?2 days after the procedure. ? If you were given a sedative during the procedure, it can affect you for several hours. Do not drive or operate machinery until your health care provider says that it is safe. ? Your health care provider may direct you to lie in a certain position (postural drainage) and tap firmly (percuss) over your kidney area to help stone fragments pass. Follow instructions as told by your health care provider. ? If directed, strain all urine through the strainer that was provided by your health care provider. ? Keep all fragments for your health care provider to see. Any stones that are found may be sent to a medical lab for examination. The stone may be as small as a grain of salt. ? Keep all follow-up visits as told by your health care provider. This is important. Contact a health care provider if: ? You have a fever or chills. ? You have nausea that is severe or does not go away. ? You have any of these urinary symptoms: ? Blood in your urine for longer than your health care provider told you to expect. ? Urine that smells bad or unusual. ? Feeling a strong urge to urinate after emptying your bladder. ? Pain or burning with urination that does not go away. ? Urinating more often than usual and this does not go away. ? You have a stent and it comes out. Get help right away if: ? You have severe pain in your back, sides, or upper abdomen. ? You have any of these urinary symptoms: ? Severe pain while urinating. ? More blood in your urine or having blood in your urine when you did not before. ? Passing blood clots in your urine. ? Passing only a small amount of urine or being unable to pass any urine at all. ? You have severe nausea that leads to persistent vomiting. ? You faint. Summary ? After this procedure, it is common to have some pain, discomfort, or nausea when pieces (fragments) of the kidney stone move through the tube that carries urine from the kidney to the bladder (ureter). If this pain or nausea is severe, however, you should contact your health care provider. ? Return to your normal activities as told by your health care provider. Ask your health care provider what activities are safe for you. ? Drink enough fluid to keep your urine pale yellow. This helps any remaining pieces of the stone to pass, and it can help prevent new stones from forming. ? If directed, strain your urine and keep all fragments fo (more content not included)... [facility] 09-13-2023 Note ED Patient Education Note Orthopedics Acute Back Pain, Adult Acute back pain is sudden and usually short-lived. It is often caused by an injury to the muscles and tissues in the back. The injury may result from: ? A muscle, tendon, or ligament getting overstretched or torn. Ligaments are tissues that connect bones to each other. Lifting something improperly can cause a back strain. ? Wear and tear (degeneration) of the spinal disks. Spinal disks are circular tissue that provide cushioning between the bones of the spine (vertebrae). ? Twisting motions, such as while playing sports or doing yard work. ? A hit to the back. ? Arthritis. You may have a physical exam, lab tests, and imaging tests to find the cause of your pain. Acute back pain usually goes away with rest and home care. Follow these instructions at home: Managing pain, stiffness, and swelling ? Take giny-tab-hgtdzyu and prescription medicines only as told by your health care provider. Treatment may include medicines for pain and inflammation that are taken by mouth or applied to the skin, or muscle relaxants. ? Your health care provider may recommend applying ice during the first 24?48 hours after your pain starts. To do this: ? Put ice in a plastic bag. ? Place a towel between your skin and the bag. ? Leave the ice on for 20 minutes, 2?3 times a day. ? Remove the ice if your skin turns bright red. This is very important. If you cannot feel pain, heat, or cold, you have a greater risk of damage to the area. ? If directed, apply heat to the affected area as often as told by your health care provider. Use the heat source that your health care provider recommends, such as a moist heat pack or a heating pad. ? Place a towel between your skin and the heat source. ? Leave the heat on for 20?30 minutes. ? Remove the heat if your skin turns bright red. This is especially important if you are unable to feel pain, heat, or cold. You have a greater risk of getting burned. Activity ? Do not stay in bed. Staying in bed for more than 1?2 days can delay your recovery. ? Sit up and stand up straight. Avoid leaning forward when you sit or hunching over when you stand. ? If you work at a desk, sit close to it so you do not need to lean over. Keep your chin tucked in. Keep your neck drawn back, and keep your elbows bent at a 90-degree angle (right angle). ? Sit high and close to the steering wheel when you drive. Add lower back (lumbar) support to your car seat, if needed. ? Take short walks on even surfaces as soon as you are able. Try to increase the length of time you walk each day. ? Do not sit, drive, or casino shift manager one place for more than 30 minutes at a time. Sitting or standing for long periods of time can put stress on your back. ? Do not drive or use heavy machinery while taking prescription pain medicine. ? Use proper lifting techniques. When you bend and lift, use positions that put less stress on your back: ? Bend your knees. ? Keep the load close to your body. ? Avoid twisting. ? Exercise regularly as told by your health care provider. Exercising helps your back heal faster and helps prevent back injuries by keeping muscles strong and flexible. ? Work with a physical therapist to make a safe exercise program, as recommended by your health care provider. Do any exercises as told by your physical therapist. Lifestyle ? Maintain a healthy weight. Extra weight puts stress on your back and makes it difficult to have good posture. ? Avoid activities or situations that make you feel anxious or stressed. Stress and anxiety increase muscle tension and can make back pain worse. Learn ways to manage anxiety and stress, such as through exercise. General instructions ? Sleep on a firm mattress in a comfortable position. Try lying on your side with your knees slightly bent. If you lie on your back, put a pillow under your knees. ? Keep your head and neck in a straight line with your spine (neutral position) when using electronic equipment like smartphones or pads. To do this: ? Raise your smartphone or pad to look at it instead of bending your head or neck to look down. ? Put the smartphone or pad at the level of your face while looking at the screen. ? Follow your treatment plan as told by your health care provider. This may include: ? Cognitive or behavioral therapy. ? Acupuncture or massage therapy. ? Meditation or yoga. Contact a health care provider if: ? You have pain that is not relieved with rest or medicine. ? You have increasing pain going down into your legs or buttocks. ? Your pain does not improve after 2 weeks. ? You have pain at night. ? You lose weight without trying. ? You have a fever or chills. ? You develop nausea or vomiting. ? You develop abdominal pain. Get help right away if: ? You develop new bowel or bladder control problems. ? You have unusual weakness or numbness in your arms or legs. ? (more content not included)... [facility] 08-26-2023 Note Patient Education Urology Benign Prostatic Hyperplasia Benign prostatic hyperplasia (BPH) is an enlarged prostate gland that is caused by the normal aging process. The prostate may get bigger as a man gets older. The condition is not caused by cancer. The prostate is a walnut-sized gland that is involved in the production of semen. It is located in front of the rectum and below the bladder. The bladder stores urine. The urethra carries stored urine out of the body. An enlarged prostate can press on the urethra. This can make it harder to pass urine. The buildup of urine in the bladder can cause infection. Back pressure and infection may progress to bladder damage and kidney (renal) failure. What are the causes? This condition is part of the normal aging process. However, not all men develop problems from this condition. If the prostate enlarges away from the urethra, urine flow will not be blocked. If it enlarges toward the urethra and compresses it, there will be problems passing urine. What increases the risk? This condition is more likely to develop in men older than 50 years. What are the signs or symptoms? Symptoms of this condition include: ? Getting up often during the night to urinate. ? Needing to urinate frequently during the day. ? Difficulty starting urine flow. ? Decrease in size and strength of your urine stream. ? Leaking (dribbling) after urinating. ? Inability to pass urine. This needs immediate treatment. ? Inability to completely empty your bladder. ? Pain when you pass urine. This is more common if there is also an infection. ? Urinary tract infection (UTI). How is this diagnosed? This condition is diagnosed based on your medical history, a physical exam, and your symptoms. Tests will also be done, such as: ? A post-void bladder scan. This measures any amount of urine that may remain in your bladder after you finish urinating. ? A digital rectal exam. In a rectal exam, your health care provider checks your prostate by putting a lubricated, gloved finger into your rectum to feel the back of your prostate gland. This exam detects the size of your gland and any abnormal lumps or growths. ? An exam of your urine (urinalysis). ? A prostate specific antigen (PSA) screening. This is a blood test used to screen for prostate cancer. ? An ultrasound. This test uses sound waves to electronically produce a picture of your prostate gland. Your health care provider may refer you to a specialist in kidney and prostate diseases (urologist). How is this treated? Once symptoms begin, your health care provider will monitor your condition (active surveillance or watchful waiting). Treatment for this condition will depend on the severity of your condition. Treatment may include: ? Observation and yearly exams. This may be the only treatment needed if your condition and symptoms are mild. ? Medicines to relieve your symptoms, including: ? Medicines to shrink the prostate. ? Medicines to relax the muscle of the prostate. ? Surgery in severe cases. Surgery may include: ? Prostatectomy. In this procedure, the prostate tissue is removed completely through an open incision or with a laparoscope or robotics. ? Transurethral resection of the prostate (TURP). In this procedure, a tool is inserted through the opening at the tip of the penis (urethra). It is used to cut away tissue of the inner core of the prostate. The pieces are removed through the same opening of the penis. This removes the blockage. ? Transurethral incision (TUIP). In this procedure, small cuts are made in the prostate. This lessens the prostate's pressure on the urethra. ? Transurethral microwave thermotherapy (TUMT). This procedure uses microwaves to create heat. The heat destroys and removes a small amount of prostate tissue. ? Transurethral needle ablation (TUNA). This procedure uses radio frequencies to destroy and remove a small amount of prostate tissue. ? Interstitial laser coagulation (ILC). This procedure uses a laser to destroy and remove a small amount of prostate tissue. ? Transurethral electrovaporization (TUVP). This procedure uses electrodes to destroy and remove a small amount of prostate tissue. ? Prostatic urethral lift. This procedure inserts an implant to push the lobes of the prostate away from the urethra. Follow these instructions at home: ? Take sihd-lau-wvaopmw and prescription medicines only as told by your health care provider. ? Monitor your symptoms for any changes. Contact your health care provider with any changes. ? Avoid drinking large amounts of liquid before going to bed or out in public. ? Avoid or reduce how much caffeine or alcohol you drink. ? Give yourself time when you urinate. ? Keep all follow-up visits. This is important. Contact a health care provider if: ? You have unexplained back pain. ? Your symptoms do not get better with treatment. ? You develop side effec (more content not included)... [facility] 04-09-2023 Evaluation note Encounter Date Diagnosis Assessment Notes Mar, Lumbar spondylosis (ICD-10 - M47.816) [place] [facility] Other 02-07-2024 Evaluation note* Encounter Date Diagnosis Assessment Notes Treatment Notes Treatment Clinical Notes Mar, Lumbar spondylosis (ICD-10 - M47.816) [facility] Other 2023 Evaluation note* Encounter Date Diagnosis Assessment Notes Treatment Notes Treatment Clinical Notes Jan, Type 2 diabetes ailyn itus with hyperglycemia, without long-term current use of insulin (ICD-10 - E11.65) This patient is following a comprehensive diabetic treatment plan. They are checking their feet daily for calluses and nonhealing ulcers. They are being seen for yearly dilated eye examinations. Goals: SBP less than 130, LDL less than 100, FBS less than 140, A1C less than 7%. They are checking their BS daily, will which are reviewed at the office visit. Continue regular routine monitoring of A1C,] Microalbumin, Dilated eye exam and Foot exam A1C < 7% Jan, Wellness examination (ICD-10 - Z00.00) Healthy diet and exercise. Reviewed age-appropriate preventive testing recommended. Jan, Primary hypertension (ICD-10 - I10) This patient is instructed to consume a healthy, low-fat, low-salt diet. They are also encouraged to continue exercise to achieve/maintain a normal BMI. Patient is instructed on home BP measurements: - rest for 5 minutes w/o talking- positioned w/ feet on floor and arm supported- average best 2/3 readings w/ goal < 135/85 _update office in couple weeks Jan, Pure hypercholestero lemia (ICD-10 - E78.00) Instructed on diet and exercise with continued statin therapy.Discussed the beneficial effects of lowering cholesterol in reducing the risk for cerebrovascular and cardiovascular disease. Jan, Inflammatory polyarthropathy (ICD-10 - M06.4) Jan, Chronic venous insufficiency (ICD-10 - I87.2) Avoid salt and elevate lower extremities, support stockings, inspect legs and feet daily for blisters and ulcerations. Jan, Lumbar spondylosis (ICD-10 - M47.816) The patient is instructed to avoid bending, twisting or lifting. They are to use intermittent heat and ice as needed. They may schedule a massage or gentle manipulation. They may safely use Tylenol as needed. Jan, Other specified hypothyroidism (ICD-10 - E03.8) Clinically euthyroid, TSH normal Jan, Autoimmune thyroidit is (ICD-10 - E06.3) Jan, Screening PSA (prost ate specific antigen) (ICD-10 - Z12.5) Yearly STEFAN and PSA [facility] Other 12-06-2023 Evaluation note* Encounter Date Diagnosis Assessment Notes Treatment Notes Treatment Clinical Notes Jan, Type 2 diabetes mellitus with hyperglycemia (ICD-10 - E11.65) This patient is following a comprehensive diabetic treatment plan. They are checking their feet daily for calluses and nonhealing ulcers. They are being seen for yearly dilated eye examinations. Goals: SBP<130, LDL<100, FBS<140 AC and A1C<7%. Not checking their BS daily, which are reviewed at the office visit. : Jan, Autoimmune thyroiditis (ICD-10 - E06.3) Jan, Inflammatory polyarthropathy (ICD-10 - M06.4) [facility] Other 11-20-2023 Evaluation note* Encounter Date Diagnosis Assessment Notes Treatment Notes Treatment Clinical Notes Dec, Acute non-recurrent maxillary sinusitis (ICD-10 - J01.00) Instructed to use Robitussin or Mucinex for cough, saline or Flonase NS for congestion, Tylenol for pain and fever. Dec, Type 2 diabetes mellitus with hyperglycemia, without long-term current use of insulin (ICD-10 - E11.65) BS may increase w/ acute illness. No change in treatment necessary [facility] Other 11-19-2023 Evaluation note* Encounter Date Diagnosis Assessment Notes Treatment Notes Treatment Clinical Notes Dec, Sore throat (ICD-10 - J02.9) Dec, Viral URI with cough (ICD-10 - J06.9) Advised patient that COVID/Influenza A/B test and rapid Strep test was negative today. Advised patient that will treat as viral URI. Supportive care as directed, increase fluids and rest, Tylenol/Motrin as directed, OTC cough/cold remedies as directed on packaging such as Cordicidin HBP, Verbank as directed, cool mist humidifier, throat lozenges. Discussed infection control practices such as good hand washing and mask wearing. Patient to follow up with PCP if symptoms persist or worsen despite treatment. Immediate eval for SOB, difficulty breathing, chest pain, fevers that do not break with antipyretic or any other concerning symptoms as reviewed on patient education handout. Patient verbalizes understanding and is agreeable to treatment plan. Patient left in stable condition. [facility] Other 06-29-2023 Evaluation note* Encounter Date Diagnosis Assessment Notes Treatment Notes Treatment Clinical Notes Jul, Controlled type 2 diabetes mellitus with hyperglycemia (ICD-10 - E11.65) Jul, Autoimmune thyroiditis (ICD-10 - E06.3) [facility] Other 06-15-2023 Evaluation note* Encounter Date Diagnosis Assessment Notes Treatment Notes Treatment Clinical Notes Jul, Inflammatory polyarthropathy (ICD-10 - M06.4) [facility] Other 03-29-2023 Evaluation note* Encounter Date Diagnosis Assessment Notes Treatment Notes Treatment Clinical Notes Apr, Inflammatory polyarthropathy (ICD-10 - M06.4) [facility] Other 01-06-2023 Evaluation note* Encounter Date Diagnosis Assessment Notes Treatment Notes Treatment Clinical Notes Feb, Type 2 diabetes mellitus with diabetic mononeuropathy (ICD-10 - E11.41) Inspect feet daily for calluses and ulcerations. Feb, Controlled type 2 diabetes mellitus with hyperglycemia (ICD-10 - E11.65) This patient is following a comprehensive diabetic treatment plan. They are checking their feet daily for calluses and nonhealing ulcers. They are being seen for yearly dilated eye examinations. Goals: SBP less than 130, LDL less than 100, FBS less than 140, AC and A1C less than 7%. They are checking their BS daily, will which are reviewed at the office visit. Feb, Hypertension (ICD-10 - I10) This patient is instructed to consume a healthy, low-fat, low-salt diet. They are also encouraged to continue exercise to achieve/maintain a normal BMI. Feb, Hyperlipidemia, mixe d (ICD-10 - E78.2) Diet and exercise with continued statin therapy. Feb, Inflammatory polyarthropathy (ICD-10 - M06.4) Continue Prednisone for acute flares of arthritis w/ swelling and stiffness. Tylenol and Voltaren Gel alternative choices. Discussed referral to Rheum but he declines Feb, Benign prostatic hyperplasia with lower urinary tract symptoms (ICD-10 - N40.1) Symptoms tolerable, yearly STEFAN/PSA Feb, Nocturia (ICD-10 - R35.1) [facility] Other [facility] Other Evaluation note* Diagnosis Onset Date Resolution Status Elevated cholesterol acute Hypertension acute Hypothyroid acute Inflammatory polyarthropathy acute Primary osteoarthritis of knees, bilateral acute Type 2 diabetes mellitus with hyperglycemia acute [facility] Work Phone: Evaluation noteNo assessment information available [facility] Work Phone: Evaluation note* Diagnosis Onset Date Resolution Status Hypertension acute Hypothyroid acute Low back pain radiating to right leg acute Lumbar spondylosis acute Obesity acute Primary osteoarthritis of knees, bilateral acute Type 2 diabetes mellitus with hyperglycemia acute [facility] Work Phone: Evaluation note* Diagnosis Hammer toe of right foot- Primary Acute osteomyelitis of ankle and foot, left (CMS/HCC) 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, right (CMS/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 ([facility]/HCC) Type II or unspecified type diabetes mellitus with neurological manifestations, not stated as uncontrolled [facility] Diagnosis Type II diabetes mellitus with neurological manifestations (CMS/HCC)- Primary Type II or unspecified type diabetes mellitus with neurological manifestations, not stated as uncontrolled Acute osteomyelitis of ankle and foot, left (CMS/HCC) 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, right (CMS/HCC) Exostosis of right foot [facility] Diagnosis Type II diabetes mellitus with neurological manifestations (CMS/HCC)- Primary Type II or unspecified type diabetes mellitus with neurological manifestations, not stated as uncontrolled 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, right ([facility]/HCC) [facility] Diagnosis Type II diabetes mellitus with neurological manifestations ([facility]/HCC)- Primary Type II or unspecified type diabetes mellitus with neurological manifestations, not stated as uncontrolled 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, right (CMS/HCC) Abscess of toe, right Exostosis of right foot [facility] Diagnosis Lumbar spondylosis- Primary Lumbosacral spondylosis without myelopathy Degeneration of lumbar intervertebral disc Degeneration of lumbar or lumbosacral intervertebral disc Iliotibial band syndrome of right side [facility]* Diagnosis Lumbar spondylosis- Primary Lumbosacral spondylosis without myelopathy Degeneration of lumbar intervertebral disc Degeneration of lumbar or lumbosacral intervertebral disc Iliotibial band syndrome of right side [facility]* Diagnosis Lumbar spondylosis- Primary Lumbosacral spondylosis without myelopathy Degeneration of lumbar intervertebral disc Degeneration of lumbar or lumbosacral intervertebral disc Iliotibial band syndrome of right side [facility]* Diagnosis Lumbar spondylosis- Primary Lumbosacral spondylosis without myelopathy Degeneration of lumbar intervertebral disc Degeneration of lumbar or lumbosacral intervertebral disc HNP (herniated nucleus pulposus), lumbar Primary osteoarthritis of right knee [facility]* Diagnosis Type II diabetes mellitus with neurological manifestations ([facility]/HCC)- Primary Type II or unspecified type diabetes mellitus with neurological manifestations, not stated as uncontrolled Right foot pain Pain in soft tissues of limb Abscess of toe, right Hammer toe of right foot Cellulitis of foot, right [facility] N[facility] - Reported* Type Description Date Medical History Hand paresthesia Medical History 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 Medical History Controlled type 2 di abetes mellitus with hyperglycemia Medical History Dysuria-frequency syndrome Medical History Hyperlipidemia, mixed Medical History H/O thyroidectomy Medical History Hypertension Medical History Inflammatory polyarthropathy Surgical History colonoscopy Hospitalization History see surgical history [facility] Other [facility] general Narrative - Reported* Type Description Date Medical History Hand paresthesia Medical History 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 Medical History Controlled type 2 di abetes mellitus with hyperglycemia Medical History Dysuria-frequency syndrome Medical History Hyperlipidemia, mixed Medical History H/O thyroidectomy Medical History Hypertension Medical History Inflammatory polyarthropathy Surgical History colonoscopy Surgical History Colonoscopy, repeat 5 years 08/16 023 Hospitalization History see surgical history [facility] Other [facility] general Narrative - Reported* Type Description Date Medical History Hand paresthesia Medical History 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 Medical History Controlled type 2 di abetes mellitus with hyperglycemia Medical History Dysuria-frequency syndrome Medical History Hyperlipidemia, mixed Medical History H/O thyroidectomy Medical History Hypertension Medical History Inflammatory polyarthropathy Surgical History colonoscopy Surgical History Colonoscopy, repeat 5 years 08/16 023 Surgical History leg fracture 2018 Hospitalization History see surgical history Hospitalization History leg fracture with plate and screws 2018 [facility] Other Summary Purpose Family History Relationship Condition Age at Onset Recorded Date/T jennifer brother Unknown father Unknown Not Specified Unknown natural son Diabetes mellitus Unknown Relationship Condition Age at Onset Recorded Date/T jennifer brother Unknown father Unknown mother Unknown son Diabetes mellitus Unknown Advance Directives Advance Directive Response Recorded Date/ Time Advance Directives No March 09, 2023 12:43pm Chief Complaint and Reason for Visit Chief Complaint Amb Documentation 3 month follow pup Reason for Visit Elevated cholesterol Hypertension Hypothyroid Inflammatory polyarthropathy Primary osteoarthritis of knees, bilateral Type 2 diabetes mellitus with hyperglycemia Chief Complaint 3 month Chief Complaint 3 month discuss issues Reason for Visit Hypertension Hypothyroid Low back pain radiating to right leg Lumbar spondylosis Obesity Primary osteoarthritis of knees, bilateral Type 2 diabetes mellitus with hyperglycemia Reason for Referral Specialty Diagnoses / Procedures Referred By Yury reyna Referred To Contact Radiology Diagnoses Acute osteomyelitis of ankle and foot, left (CMS/HCC) 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 [place] [place] [address] [address] [place] [address] Referral ID Status Reason Start Date Expiration Date V isits Requested Visits Authorized [id number] Authorized 11/22/2023 05/20/2024 1 1 Additional Source Comments (unrecognized sect ion and content) No Status Records FoundNo Status Records FoundNo Status Records FoundNo Status Records FoundNo Status Records FoundNo Status Records FoundNo Status Records FoundNo Status Records FoundNo Status Records FoundNo Status Records FoundNo Status Records FoundNo Status Records FoundNo Status Records FoundNo Status Records FoundNo Status Records FoundNo Status Records FoundNo Status Records FoundNo Status Records FoundNo Status Records FoundNo Status Records Found INFORMATION SOURCE (unrecogn ized section and content) DATE CREATED AUTHOR [facility]/12/2021 [facility] DATE CREATED AUTHOR AUTHOR'S ORGANIZ ATION 07/18/2023 [facility] DATE CREATED AUTHOR AUTHOR'S ORGANIZ ATION 08/31/2023 [facility] DATE CREATED AUTHOR AUTHOR'S ORGANIZ ATION 10/27/2023 [facility] DATE CREATED AUTHOR AUTHOR'S ORGANIZ ATION 10/30/2023 [facility] DATE CREATED AUTHOR AUTHOR'S ORGANIZ ATION 11/10/2023 [facility] DATE CREATED AUTHOR AUTHOR'S ORGANIZ ATION 12/23/2023 [facility] DATE CREATED AUTHOR AUTHOR'S ORGANIZ ATION 01/28/2024 [facility] DATE CREATED AUTHOR AUTHOR'S ORGANIZ ATION 01/29/2024 [facility] DATE CREATED AUTHOR AUTHOR'S ORGANIZ ATION 01/31/2024 [facility] DATE CREATED AUTHOR AUTHOR'S ORGANIZ ATION 02/01/2024 [facility] REASON FOR VISIT (unrecogniz ed section and content) Reason Comments Foot Ulcer F/U RT foot ulcer Reason Comments Follow-up F/U MRI RT grt toe Reason Comments Consent Or Instructions Surgery consult for RT grt toe ulcer Specialty Diagnoses / Procedures Referred By Yury reyna Referred To Contact Physical Therapy Diagnoses Primary osteoarthritis of right knee Lumbar spondylosis Degeneration of lumbar intervertebral disc Iliotibial band syndrome of right side Lumbar radiculopathy Procedures [place] OFFICE/OUTPATIENT NEW HIGH MDM 60 MINUTES Lexi Bray DO [address] [place] [address] Alejandro Lugo, PT [address] [facility] [address] [place] [address] Referral ID Status Reason Start Date Expiration Date Visits Requested Visits Authorized [id number] Authorized Specialty Services Required 09/15/2023 03/13/2024 20 30 Reason Comments Pain Follow-up Reason Onset Date Comments pending MRI 10/19/2023 He called noting he had pulled his back again Wednesday and pending MRI he is to put PT on-hold. He has an appt tomorrow w/ Katarina and Bill requested the MRI results sent over to him. He will call back to inform of plan given per doctor(s) benny. Reason Comments Foot Ulcer Ulcer on RT great to e Care Teams (unrecognized sec tion and content) Team Status: Active Member Role Status Dates Cesar Davis DO Primary Care Provider Active Team Status: Inactive Member Role Status Dates Cesar Davis DO Primary Care Provide r, Attending Provider Active Start: October 07, 2023 End: October 07, 2023 Team Status: Active Member Role Status Dates Cesar Davis DO Primary Care Provider Active Start: April 09, 2023 VANNA Lopez Attending Provider Active Start : April 09, 2023 Team Status: Inactive Member Role Status Dates Cesar Davis DO Primary Care Provide r, Attending Provider Active Start: April 29, 2023 End: April 29, 2023 Team Status: Inactive Member Role Status Dates Cesar Davis DO Primary Care Provide r, Attending Provider Active Start: October 21, 2023 End: October 21, 2023 Relay Adjuster Relationship Specialty Start Date End Date Cesar Davis MD [address] [facility] [place] [id number] PCP - General Internal Medicine 07/15/22 Relay Adjuster Relationship Specialty Start Date End Date Cesar Davis MD [address] [facility] [place] [id number] PCP - General Internal Medicine 07/15/22 Relay Adjuster Relationship Specialty Start Date End Date Cesar Davis MD [address] [facility] [place] [address] PCP - General Internal Medicine 07/15/22 Relay Adjuster Relationship Specialty Start Date End Date Cesar Davis MD [address] [facility] [place] [address] PCP - General Internal Medicine 07/15/22 Relay Adjuster Relationship Specialty Start Date End Date Cesar Davis MD [address] [facility] [place] [address] PCP - General Internal Medicine 07/15/22 Relay Adjuster Relationship Specialty Start Date End Date Cesar Davis MD [address] [facility] [place] [address] PCP - General Internal Medicine 07/15/22 Relay Adjuster Relationship Specialty Start Date End Date Cesar Davis MD [address] [facility] [place] [address] PCP - General Internal Medicine 07/15/22 Relay Adjuster Relationship Specialty Start Date End Date Cesar Davis MD [address] [facility] [place] [address] PCP - General Internal Medicine 07/15/22 Relay Adjuster Relationship Specialty Start Date End Date Cesar Davis MD [address] [facility] [place] [address] PCP - General Internal Medicine 07/15/22 Relay Adjuster Relationship Specialty Start Date End Date Cesar Davis MD [address] [facility] [place] [address] PCP - General Internal Medicine 07/15/22 Relay Adjuster Relationship Specialty Start Date End Date Cesar Davis MD [address] [facility] [place] [address] PCP - General Internal Medicine 07/15/22 Relay Adjuster Relationship Specialty Start Date End Date Cesar Davis MD [address] [facility] [place] [id number] PCP - General Internal Medicine 07/15/22 Relay Adjuster Relationship Specialty Start Date End Date Cesar Davis MD [address] [facility] [place] [address] PCP - General Internal Medicine 07/15/22 Relay Adjuster Relationship Specialty Start Date End Date Cesar Davis MD [address] [facility] [place] [address] PCP - General Internal Medicine 07/15/22 Relay Adjuster Relationship Specialty Start Date End Date Cesar Davis MD [address] [place] [address] PCP - General Internal Medicine 07/15/22 Goals (unrecognized section and content) Goals may be documented in a n alternate section FOR RECORDS PERTAINING TO PATIENTS WHO ARE OR HAVE BEEN ENROLLED IN A CHEMICAL DEPENDENCY/SUBSTANCEABUSE PROGRAM, SOME INFORMATION MAY BE OMITTED. This clinical summary was aggregated from multiple sources. Caution should be exercised in using it in the provision of clinical care. This summary normalizes information from multiple sources, and as a consequence, information in this document may materially change the coding, format and clinical context of patient data. In addition, data may be omitted in some cases. CLINICAL DECISIONS SHOULD BE BASED ON THE PRIMARY CLINICAL RECORDS. [employer] provides no warranty or guarantee of the accuracy or completeness of information in this document.
[2024-02-10] MEDS: REGADENOSON 0.4 MG/5 ML SYRINGE IV (13:44)
== END 2024-02-10 11:40 | disposition home or self-care (01) ==
LOC: CARD 11:41
PROVIDERS: PCP Internal Medicine; Visit Provider Internal Medicine
DX: I48.19 Other persistent atrial fibrillation (principal); E11.65 Type 2 diabetes mellitus with hyperglycemia; I10 Essential (primary) hypertension
CPT/HCPCS: 93017; J2785

== ENCOUNTER 2024-02-11 09:50 | Outpatient (OUT) | payer MEDICARE, SELFPAY ==
--- NOTE | 2024-02-10 12:45 | PM.STRESS ---
Stress Test Stress Test Requesting physician: Cesar Davis Procedure: Lexiscan Stress Test General Information: Reason for Stress Test: New onset atrial fibrillation Cardiac History and Risk Factors: Mr. Calvo is a 68 y/o with T2DM, HTN and new onset atrial fibrillation with controlled ventricular rate. Resting 12 - Lead Electrocardiogram: Atrial fibrillation with controlled ventricular rate of 90 bpm. QRS with RBBB pattern and secondary ST/T wave changes. No pathologic Qwaves or chamber enlargement. Stress Test: Protocol: Lexiscan protocol Exercise Capacity: N/A Blood Pressure Response: Resting BP was 136/68 with peak BP 142/76. Rhythm: Atrial fibrillation ST - Response: Secondary ST/T wave changes without change during infusion Patient Response: He c/o mild indigestion without chest pain, dyspnea or lightheadedness Interpretation: There was no objective evidence of myocardial ischemia during infusion. Cardiolite was injected with images and interpretation pending.
--- NOTE | 2024-02-11 10:00 | CA_ITS ---
Patient Name: CAMILA LINDSAY MR#: [id number] : 1955 Exam Date: 02/11/2024 Ordering Doctor: DR Cesar Davis D.O. ECHOCARDIOGRAM REPORT PROCEDURE: CA ECHO DOPPLER COMPLETE INDICATIONS: Atrial fibrillation, hypertension, diabetes COMPARISON: None. DESCRIPTION: COMPLETE ECHOCARDIOGRAM Real-time transthoracic echocardiography with 2D, M-mode, spectral and color flow Doppler performed. QUALITY: Technical quality was good. LEFT VENTRICLE: Mild dilatation. Moderate concentric left ventricular hypertrophy. Normal systolic function. LV EF: Normal left ventricular ejection fraction, (55%). DIASTOLIC: Not adequately assessed due to heart rhythm. ATRIAL SEPTUM: Visually appears intact. LEFT ATRIUM: Severe dilatation. RIGHT ATRIUM: Moderate dilatation. RIGHT VENTRICLE: Moderate dilatation. Normal right ventricular systolic function. TRICUSPID VALVE: Normal mobility and thickness. No stenosis with trivial regurgitation. Doppler studies reveal mildly (35-45) elevated right sided pressures. RVSP 42 mmHg MITRAL VALVE: Normal mobility and thickness. No evidence of mitral valve stenosis. There is no mitral annular calcification. Mild mitral regurgitation. AORTIC VALVE: Normal trileaflet appearance. Thickened aortic valve with calcification of the leaflet tips. Normal leaflet mobility. No evidence of aortic valve stenosis. No aortic regurgitation. AORTIC ROOT: Normal diameter and appearance. Ascending aorta is normal in size. PULMONIC VALVE: Normal thickness and mobility. No stenosis. No regurgitation. PERICARDIUM: No evidence of pericardial effusion. IVC: IVC is dilated (2.9 cm), does not fully collapse. PLEURA: CONCLUSION: 1. Moderate concentric left ventricular hypertrophy with normal systolic function. Estimated LVEF is 55%. 2. Moderately dilated right ventricle with normal systolic function. 3. Moderate severe biatrial dilatation. 4. Mild mitral regurgitation. 5. Mildly elevated right-sided pressures. Adult Echocardiography Procedure Report Left Ventricle LVEDD (3.7 - 5.6 cm): 6.17 cm LVESD (2.2 - 4.0 cm): 4.16 cm LVIVS thickness (0.6 - 1.2 cm): 1.38 cm LVPW thickness (0.5 - 1.0 cm): 1.68 cm LVOT Max Gradient: 4.75 mm[Hg], 3.84 mm[Hg], 3.20 mm[Hg] LVOT Area (cm2): 0.99 m/s Peak Velocity (LVOT): 1.09 m/s, 0.98 m/s, 0.89 m/s LVOT Diameter 2.57 cm Left Atrium LA Volume Index (2D A2C): 59.84 ml/m2 Left Atrium Systolic Dimension: 4.81 cm Mitral Valve Mitral Valve E-Wave Peak Velocity: 0.68 m/s Right Ventricle Aorta AO Root Diam: 3.51 cm Ascending Ao Diam: 2.84 cm Aortic Valve AoV Area (Peak Juan): 3.49 cm2, 3.37 cm2, 4.04 cm2 Peak Velocity(Antegrade Flow): 1.67 m/s, 1.25 m/s Peak Gradient(Antegrade Flow): 11.21 mm[Hg], 6.30 mm[Hg] Tricuspid Valve Peak Velocity (Regurgitant Flow): 2.60 m/s Pulmonic Valve Peak Velocity: 0.83 m/s Peak Gradient: 2.53 mm[Hg], 3.46 mm[Hg], 3.22 mm[Hg], 3.96 mm[Hg], 1.09 mm[Hg] Right Atrium Right Atrium Systolic Pressure: 85.81 ml, 85.81 ml Dictated by: Herber Angulo M.D. on 02/11/2024 at 19:26 Approved by: Herber Angulo M.D. on 02/11/2024 at 19:30
== END 2024-02-11 09:51 | disposition home or self-care (01) ==
LOC: CARD 09:50
PROVIDERS: PCP Internal Medicine; Visit Provider Internal Medicine
DX: I48.19 Other persistent atrial fibrillation (principal); E11.65 Type 2 diabetes mellitus with hyperglycemia; I10 Essential (primary) hypertension
CPT/HCPCS: 93306

== ENCOUNTER 2024-08-08 08:23 | Outpatient (OUT) | payer MEDICARE, OTHER, SELFPAY ==
[2024-08-08 09:01] LABS: Estimated Average Glucose 146 mg/dL; Glycohemoglobin A1C 6.7 % (4.5-6.2)
[2024-08-08 10:53] LABS: Prostate Specific Antigen Scrn 2.09 ng/mL (<=4.00)
== END 2024-08-08 08:24 | disposition home or self-care (01) ==
PROVIDERS: PCP Internal Medicine; Visit Provider Internal Medicine
DX: E11.65 Type 2 diabetes mellitus with hyperglycemia (principal); Z12.5 Encounter for screening for malignant neoplasm of prostate
CPT/HCPCS: 36415; 83036; G0103